=== PATIENT | female | born 1940 | race Caucasian/White ===

== ENCOUNTER 2020-03-04 17:51 | Inpatient (IN) | payer MEDICARE, BC ==
[2020-03-04] MEDS ORDERED: Ondansetron 4 MG Tab.DIS PO ONE (18:30)
[2020-03-04] MEDS ORDERED: Sodium Chloride 0.9% 10 ML Syringe FLUSH PRN (18:45)
[2020-03-04] MEDS ORDERED: Sodium Chloride 0.9% 1,000 ML IV ONE (18:47)
[2020-03-04] MEDS ORDERED: Metoclopramide 10 MG/2 ML SDV IVPUSH ONE (18:58)
--- NOTE | 2020-03-04 19:04 | EDM.PDOC ---
ED HPI GENERAL MEDICAL PROBLEM - General Chief Complaint: Gastrointestinal Problem Stated Complaint: SORE THROAT/DIZZY/DIARRHEA Time Seen by Provider: 03/04/20 18:43 Source of Information: Reports: Patient, RN Notes Reviewed History Limitations: Reports: No Limitations - History of Present Illness INITIAL COMMENTS - FREE TEXT/NARRATIVE: Patient is a 79-year-old female who presents to the ED for the evaluation of a couple different complaints. She states that she developed a sore throat last night at around 11 PM, and this is just worsened all day. She states that she is felt dizzy, had 4 episodes of diarrhea, had a headache with associated nausea. Patient does have a little bit of emesis in the bag upon triage. Patient states that she is really not been eating or drinking anything all day, as her throat pain is been quite severe. Patient states that she does not have a fever at home, we got a temperature 98.4 F, but she does feel warmer than this. She does states she has had the chills, she denies any body aches, she states that she has not been around anyone that sick, they have been real careful about trying to stay home and limit exposure to anyone. She did take a dose of Tylenol, this seemed to help a little bit. She states that her episodes of diarrhea were very watery, she denies any abdominal pain, dysuria, frequency or urgency. She states she did take 1 spoonful of Pepto for the diarrhea but this did not help much. She does have a intermittent wet cough at time of exam as well. Patient's primary care provider is Agueda Mccray, she is on losartan, fenofibrate, and metformin. Throat Pain Score (Numeric/FACES): 7 - Related Data Allergies Allergy/AdvReac Type Severity Reaction Status Date / Time azithromycin Allergy Severe Cannot Verified 03/04/20 18:18 Remember propoxyphene AdvReac Severe Nausea and Verified 03/04/20 18:18 Vomiting biaxin Allergy Severe Rash Uncoded 03/04/20 18:18 hydrocodone Allergy Severe Cannot Uncoded 03/04/20 18:18 Remember meclizine AdvReac Severe Dizziness Uncoded 03/04/20 18:18 trimethoprim AdvReac Severe Stomach Uncoded 03/04/20 18:18 Upset Home Meds: Home Meds Ascorbic Acid [Vitamin C] 1 tab PO DAILY 10/19/14 [History] Aspirin/Acetaminophen/Caffeine [Migraine Formula Caplet] 2 tab PO BID 10/19/14 [History] Calcium Carbonate/Vitamin D3 [Calcium 500-Vit D3 125 Caplet] 3 tab PO DAILY 10/19/14 [History] Cholecalciferol (Vitamin D3) [Vitamin D3] 1 tab PO DAILY 10/19/14 [History] Fermig 60 mg PO ASDIRECTED 10/19/14 [History] L Acidophil/B Lactis/B Longum [Florajen3] 1 tab PO DAILY 10/19/14 [History] Losartan/Hydrochlorothiazide [Losartan-HCTZ 100-25 MG] 1 tab PO DAILY 10/19/14 [History] [place] 3/DHA/Epa/Vitamin D3 [[place]-3 + Vitamin D3 Softgel] 1 tab PO DAILY 10/19/14 [History] Simvastatin [Zocor] 1 tab PO BEDTIME 10/19/14 [History] Ubidecarenone [Co Q-10] 1 tab PO DAILY 10/19/14 [History] metFORMIN HCl [Metformin HCl] 500 mg PO DAILY 10/19/14 [History] Ciprofloxacin HCl [Cipro] 500 mg PO BID #14 tablet 10/22/14 [Rx] metroNIDAZOLE [Flagyl] 500 mg PO Q8H #21 tab 10/22/14 [Rx] Past Medical History HEENT History: Reports: Impaired Vision Cardiovascular History: Reports: High Cholesterol, Hypertension 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 Denies: Fever HEENT: Reports: Throat Pain. Denies: Throat Swelling Respiratory: Reports: Cough. Denies: Shortness of Breath Cardiovascular: Denies: Chest Pain GI/Abdominal: Reports: Diarrhea (x 4 watery episodes today), Nausea, Vomiting. Denies: Abdominal Pain, Distension : Denies: Dysuria, Frequency, Urgency Neurological: Reports: Dizziness (characterizes a world spinning dizziness) ED EXAM, GI/ABD - Physical Exam Exam: See Below Exam Limited By: No Limitations General Appearance: Alert, WD/WN, No Apparent Distress Eyes: Bilateral: Normal Appearance Throat/Mouth: Normal Inspection, Normal Lips, Normal Teeth, Normal Gums, Normal Oropharynx, Normal Voice, No Airway Compromise Head: Atraumatic, Normocephalic Neck: Normal Inspection Respiratory/Chest: No Respiratory Distress, Lungs Clear, Normal Breath Sounds, No Accessory Muscle Use, Chest Non-Tender, Other (pt did have a harsh sounding cough when I was examining her) Cardiovascular: Normal Peripheral Pulses, Regular Rate, Rhythm, No Murmur GI/Abdominal Exam: Normal Bowel Sounds, Soft, Non-Tender, No Distention, No Mass Extremities: Normal Inspection, Normal Capillary Refill Neurological: Alert, Oriented, Normal Cognition, No Motor/Sensory Deficits Psychiatric: Normal Affect, Normal Mood Skin Exam: Warm (pt feels warm to the touch), Intact, Normal Color, No Rash, Diaphoretic EKG INTERPRETATION EKG Date: 03/04/20 Time: 19:26 Rhythm: NSR Rate (Beats/Min): 75 [place]: Normal P-Wave: Present QRS: Normal ST-T: Normal QT: Normal Comparison: NA - No Prior EKG EKG Interpretation Comments: No obvious ischemia or acute ST changes noted, reviewed by myself and Dr. Varela. Course - Vital Signs Last Recorded V/S: Last Vital Signs Temp 98.4 F 03/04/20 18:18 Pulse 87 03/04/20 18:18 Resp 18 03/04/20 18:18 BP 168/90 H 03/04/20 18:18 Pulse Ox 97 03/04/20 18:18 - Orders/Labs/Meds Orders: Active Orders 24 hr Category Date Time Status Admission Status [Patient Status] [ADT] Routine ADT 03/04/20 21:00 Ordered EKG Documentation Completion [RC] STAT Care 03/04/20 19:03 Ordered Peripheral IV Care [RC] . DIRECTED Care 03/04/20 18:45 Ordered Chest 1V Frontal [CR] Stat Exams 03/04/20 18:58 Ordered CULTURE STREP A CONFIRMATION [RM] Stat Lab 03/04/20 18:34 Results OSMOLALITY,URINE [URCHEM] Stat Lab 03/04/20 19:30 Received SODIUM,URINE RANDOM [URCHEM] Stat Lab 03/04/20 20:58 Ordered STREP SCRN A RAPID W CULT CONF [RM] Stat Lab 03/04/20 18:34 Ordered Sodium Chloride 0.9% [Normal Saline] 1,000 ml Med 03/04/20 21:00 Active IV ASDIRECTED Sodium Chloride 0.9% [Saline Flush] Med 03/04/20 18:45 Ordered 10 ml FLUSH ASDIRECTED PRN Peripheral IV Insertion Adult [OM.PC] Routine Oth 03/04/20 18:45 Ordered Medication Orders Sodium Chloride (Normal Saline) 1,000 mls @ 125 mls/hr IV ASDIRECTED SHAUNA Sodium Chloride (Saline Flush) 10 ml FLUSH ASDIRECTED PRN PRN Reason: Keep Vein Open Last Admin: 03/04/20 19:13 Dose: 10 ml Documented by: ELI Labs: Laboratory Tests 03/04/20 03/04/20 03/04/20 Range/Units 18:30 18:30 18:30 WBC 13.69 H (3.98-10.04) K/mm3 RBC 4.24 (3.98-5.22) M/mm3 Hgb 12.3 (11.2-15.7) gm/dl Hct 36.2 (34.1-44.9) % MCV 85.4 D (79.4-94.8) fl MCH 29.0 (25.6-32.2) pg MCHC 34.0 (32.2-35.5) g/dl RDW Std Deviation 37.9 (36.4-46.3) fL Plt Count 394 H D (182-369) K/mm3 MPV 9.5 (9.4-12.3) fl Neut % (Auto) 73.1 H (34.0-71.1) % Lymph % (Auto) 18.8 L (19.3-51.7) % Stone % (Auto) 6.9 (4.7-12.5) % Eos % (Auto) 0.4 L (0.7-5.8) Baso % (Auto) 0.1 (0.1-1.2) % Neut # (Auto) 10.02 H (1.56-6.13) K/mm3 Lymph # (Auto) 2.57 (1.18-3.74) K/mm3 Stone # (Auto) 0.94 H (0.24-0.36) K/mm3 Eos # (Auto) 0.05 (0.04-0.36) K/mm3 Baso # (Auto) 0.01 (0.01-0.08) K/mm3 Manual Slide Review Normal smear PT (9.7-12.0) SECONDS INR APTT (22-31) SECONDS D-Dimer, Quantitative (0.19-0.50) mg/L Sodium 116 L* D (136-145) mEq/L Potassium 4.0 (3.5-5.1) mEq/L Chloride 81 L D (98-107) mEq/L Carbon Dioxide 24 (21-32) mEq/L Anion Gap 15.0 (5-15) BUN 25 H (7-18) mg/dL Creatinine 1.1 H (0.55-1.02) mg/dL Est Cr Clr Drug Dosing 38.82 mL/min Estimated GFR (MDRD) 48 (>60) mL/min BUN/Creatinine Ratio 22.7 H (14-18) Glucose 178 H (83-115) mg/dL Serum Osmolality (280-300) mosm/kg Calcium 8.9 (8.5-10.1) mg/dL Ferritin 189 (8-252) ng/ml Total Bilirubin 0.3 (0.2-1.0) mg/dL AST 21 (15-37) U/L ALT 27 (14-59) U/L Alkaline Phosphatase 47 (46-116) U/L Lactate Dehydrogenase 226 (81-234) U/L Troponin I (0.00-0.056) ng/mL NT-Pro-B Natriuret Pep (0-450) pg/mL Total Protein 7.4 (6.4-8.2) g/dl Albumin 3.9 (3.4-5.0) g/dl Globulin 3.5 gm/dL Albumin/Globulin Ratio 1.1 (1-2) Urine Color (Yellow) Urine Appearance (Clear) Urine pH (5.0-8.0) Ur Specific [place] (1.005-1.030) Urine Protein (Negative) Urine Glucose (UA) (Negative) Urine Ketones (Negative) Urine Occult Blood (Negative) Urine Nitrite (Negative) Urine Bilirubin (Negative) Urine Urobilinogen (0.2-1.0) Ur Leukocyte Esterase (Negative) Urine RBC (0-5) /hpf Urine WBC (0-5) /hpf Ur Squamous Epith Cells (0-5) /hpf Urine Bacteria (FEW) /hpf Urine Mucus (FEW) /hpf SARS Virus RNA (PCR) (NEGATIVE) 03/04/20 03/04/20 03/04/20 Range/Units 18:30 18:30 18:30 WBC (3.98-10.04) K/mm3 RBC (3.98-5.22) M/mm3 Hgb (11.2-15.7) gm/dl Hct (34.1-44.9) % MCV (79.4-94.8) fl MCH (25.6-32.2) pg MCHC (32.2-35.5) g/dl RDW Std Deviation (36.4-46.3) fL Plt Count (182-369) K/mm3 MPV (9.4-12.3) fl Neut % (Auto) (34.0-71.1) % Lymph % (Auto) (19.3-51.7) % Stone % (Auto) (4.7-12.5) % Eos % (Auto) (0.7-5.8) Baso % (Auto) (0.1-1.2) % Neut # (Auto) (1.56-6.13) K/mm3 Lymph # (Auto) (1.18-3.74) K/mm3 Stone # (Auto) (0.24-0.36) K/mm3 Eos # (Auto) (0.04-0.36) K/mm3 Baso # (Auto) (0.01-0.08) K/mm3 Manual Slide Review PT 11.3 (9.7-12.0) SECONDS INR 1.06 APTT 26 (22-31) SECONDS D-Dimer, Quantitative 0.34 (0.19-0.50) mg/L Sodium (136-145) mEq/L Potassium (3.5-5.1) mEq/L Chloride (98-107) mEq/L Carbon Dioxide (21-32) mEq/L Anion Gap (5-15) BUN (7-18) mg/dL Creatinine (0.55-1.02) mg/dL Est Cr Clr Drug Dosing mL/min Estimated GFR (MDRD) (>60) mL/min BUN/Creatinine Ratio (14-18) Glucose (83-115) mg/dL Serum Osmolality 261 L (280-300) mosm/kg Calcium (8.5-10.1) mg/dL Ferritin (8-252) ng/ml Total Bilirubin (0.2-1.0) mg/dL AST (15-37) U/L ALT (14-59) U/L Alkaline Phosphatase (46-116) U/L Lactate Dehydrogenase (81-234) U/L Troponin I < 0.017 (0.00-0.056) ng/mL NT-Pro-B Natriuret Pep (0-450) pg/mL Total Protein (6.4-8.2) g/dl Albumin (3.4-5.0) g/dl Globulin gm/dL Albumin/Globulin Ratio (1-2) Urine Color (Yellow) Urine Appearance (Clear) Urine pH (5.0-8.0) Ur Specific [place] (1.005-1.030) Urine Protein (Negative) Urine Glucose (UA) (Negative) Urine Ketones (Negative) Urine Occult Blood (Negative) Urine Nitrite (Negative) Urine Bilirubin (Negative) Urine Urobilinogen (0.2-1.0) Ur Leukocyte Esterase (Negative) Urine RBC (0-5) /hpf Urine WBC (0-5) /hpf Ur Squamous Epith Cells (0-5) /hpf Urine Bacteria (FEW) /hpf Urine Mucus (FEW) /hpf SARS Virus RNA (PCR) (NEGATIVE) 03/04/20 03/04/20 03/04/20 Range/Units 18:30 19:17 19:30 WBC (3.98-10.04) K/mm3 RBC (3.98-5.22) M/mm3 Hgb (11.2-15.7) gm/dl Hct (34.1-44.9) % MCV (79.4-94.8) fl MCH (25.6-32.2) pg MCHC (32.2-35.5) g/dl RDW Std Deviation (36.4-46.3) fL Plt Count (182-369) K/mm3 MPV (9.4-12.3) fl Neut % (Auto) (34.0-71.1) % Lymph % (Auto) (19.3-51.7) % Stone % (Auto) (4.7-12.5) % Eos % (Auto) (0.7-5.8) Baso % (Auto) (0.1-1.2) % Neut # (Auto) (1.56-6.13) K/mm3 Lymph # (Auto) (1.18-3.74) K/mm3 [place] # (Auto) (0.24-0.36) K/mm3 Eos # (Auto) (0.04-0.36) K/mm3 Baso # (Auto) (0.01-0.08) K/mm3 Manual Slide Review PT (9.7-12.0) SECONDS INR APTT (22-31) SECONDS D-Dimer, Quantitative (0.19-0.50) mg/L Sodium (136-145) mEq/L Potassium (3.5-5.1) mEq/L Chloride (98-107) mEq/L Carbon Dioxide (21-32) mEq/L Anion Gap (5-15) BUN (7-18) mg/dL Creatinine (0.55-1.02) mg/dL Est Cr Clr Drug Dosing mL/min Estimated GFR (MDRD) (>60) mL/min BUN/Creatinine Ratio (14-18) Glucose (83-115) mg/dL Serum Osmolality (280-300) mosm/kg Calcium (8.5-10.1) mg/dL Ferritin (8-252) ng/ml Total Bilirubin (0.2-1.0) mg/dL AST (15-37) U/L ALT (14-59) U/L Alkaline Phosphatase (46-116) U/L Lactate Dehydrogenase (81-234) U/L Troponin I (0.00-0.056) ng/mL NT-Pro-B Natriuret Pep 403 (0-450) pg/mL Total Protein (6.4-8.2) g/dl Albumin (3.4-5.0) g/dl Globulin gm/dL Albumin/Globulin Ratio (1-2) Urine Color Yellow (Yellow) Urine Appearance Clear (Clear) Urine pH 7.0 (5.0-8.0) Ur Specific [place] 1.025 (1.005-1.030) Urine Protein Negative (Negative) Urine Glucose (UA) Trace H (Negative) Urine Ketones Negative (Negative) Urine Occult Blood Negative (Negative) Urine Nitrite Negative (Negative) Urine Bilirubin Negative (Negative) Urine Urobilinogen 0.2 (0.2-1.0) Ur Leukocyte Esterase Negative (Negative) Urine RBC 0-5 (0-5) /hpf Urine WBC 0-5 (0-5) /hpf Ur Squamous Epith Cells 0-5 (0-5) /hpf Urine Bacteria Few (FEW) /hpf Urine Mucus Few (FEW) /hpf SARS Virus RNA (PCR) Negative (NEGATIVE) Meds: Medications Generic Name Dose Route Start Last Admin Trade Name Freq PRN Reason Stop Dose Admin Sodium Chloride 1,000 mls @ 125 mls/hr 03/04/20 21:00 Normal Saline IV ASDIRECTED SHAUNA Sodium Chloride 10 ml 03/04/20 18:45 03/04/20 19:13 Saline Flush FLUSH 10 ml ASDIRECTED PRN Administration Keep Vein Open Discontinued Medications Generic Name Dose Route Start Last Admin Trade Name Freq PRN Reason Stop Dose Admin Sodium Chloride 1,000 mls @ 999 mls/hr 03/04/20 18:47 03/04/20 19:13 Normal Saline IV 03/04/20 19:47 999 mls/hr ONETIME ONE Administration Metoclopramide HCl 10 mg 03/04/20 18:58 03/04/20 19:13 Reglan IVPUSH 03/04/20 18:59 10 mg ONETIME ONE Administration Ondansetron HCl 4 mg 03/04/20 18:30 03/04/20 18:34 Zofran Odt PO 03/04/20 18:31 4 mg ONETIME ONE Administration - Re-Assessments/Exams Free Text/Narrative Re-Assessment/Exam: 03/04/20 19:06 Patient presents to the ED for her sore throat, diarrhea, and dizziness. Patient's symptomology is quite vague, laboratory evaluation will be carried out, along with chest x-ray, EKG, and a 1 hour coronavirus test to determine whe ther or not she has COVID-19 at the time of exam. I did make nursing aware, and they stated they were going to put her in isolation precautions at this time. 03/04/20 19:48 Patient sodium is low at 116. This will put her in for hospital admission. She is getting 1 L of normal saline at this time. No other abnormalities on labs have been appreciated otherwise. EKG is sinus rhythm at 75 bpm, no obvious ischemic change appreciated by myself or Dr. Varela. After the serum sodium did come back, I have ordered other labs for further evaluation. 03/04/20 21:07 Patient's laboratory evaluation has come back other than the serum sodium being low at 116, there are no other metabolic abnormalities appreciated. COVID test is negative. I did call Dr. Parker for hospitalization and he does agree for admission at this time. Departure - Departure Time of Disposition: 21:08 Disposition: Admitted As Inpatient 66 Condition: Good Clinical Impression: Hyponatremia - Discharge Information Referrals: Agueda Mccray MD [Primary Care Provider] - Forms: ED Department Discharge Sepsis Event Note (ED) - Evaluation Sepsis Screening Result: No Definite Risk - Focused Exam Vital Signs: Vital Signs Temp Pulse Resp BP Pulse Ox 03/04/20 18:18 98.4 F 87 18 168/90 H 97 - My Orders Last 24 Hours: My Active Orders 03/04/20 18:34 CULTURE STREP A CONFIRMATION [RM] Stat STREP SCRN A RAPID W CULT CONF [RM] Stat 03/04/20 18:45 Peripheral IV Care [RC] . DIRECTED Sodium Chloride 0.9% [Saline Flush] 10 ml FLUSH ASDIRECTED PRN Peripheral IV Insertion Adult [OM.PC] Routine 03/04/20 18:58 Chest 1V Frontal [CR] Stat 03/04/20 19:03 EKG Documentation Completion [RC] STAT 03/04/20 19:30 OSMOLALITY,URINE [URCHEM] Stat 03/04/20 20:58 SODIUM,URINE RANDOM [URCHEM] Stat 03/04/20 21:00 Admission Status [Patient Status] [ADT] Routine Sodium Chloride 0.9% [Normal Saline] 1,000 ml IV ASDIRECTED - Assessment/Plan Last 24 Hours: My Active Orders 03/04/20 18:34 CULTURE STREP A CONFIRMATION [RM] Stat STREP SCRN A RAPID W CULT CONF [RM] Stat 03/04/20 18:45 Peripheral IV Care [RC] . DIRECTED Sodium Chloride 0.9% [Saline Flush] 10 ml FLUSH ASDIRECTED PRN Peripheral IV Insertion Adult [OM.PC] Routine 03/04/20 18:58 Chest 1V Frontal [CR] Stat 03/04/20 19:03 EKG Documentation Completion [RC] STAT 03/04/20 19:30 OSMOLALITY,URINE [URCHEM] Stat 03/04/20 20:58 SODIUM,URINE RANDOM [URCHEM] Stat 03/04/20 21:00 Admission Status [Patient Status] [ADT] Routine Sodium Chloride 0.9% [Normal Saline] 1,000 ml IV ASDIRECTED
[2020-03-04] MEDS ORDERED: Sodium Chloride 0.9% 1,000 ML IV SCH (21:00)
[2020-03-04] MEDS ORDERED: Acetaminophen 325 MG Tab PO PRN (22:51)
[2020-03-04] MEDS ORDERED: Melatonin 3 MG Tab PO PRN (22:57)
[2020-03-04] MEDS ORDERED: Potassium Chloride 20 MEQ Tab.ER PO ONE (23:51)
[2020-03-04] MEDS ORDERED: Magnesium Sulfate/Water 4 GM in Premix Bag 1 BAG IV ONE (23:51)
[2020-03-05] MEDS: Ondansetron 4 MG/2 ML SDV IV PRN ×2 (02:07→07:12)
[2020-03-05] MEDS ORDERED: Sodium Chloride 3% 500 ML IV SCH ×2 (07:45→19:00)
[2020-03-05] MEDS ORDERED: Promethazine 12.5 MG in Sodium Chloride 0.9% 50 ML IV PRN (08:12)
--- NOTE | 2020-03-05 08:22 | PCM.HP.2 ---
H&P History of Present Illness - General Date of Service: 03/05/20 Admit Problem/Dx: Admission Diagnosis/Problem Admission Diagnosis/Problem Symptomatic Hyponatremia - History of Present Illness Initial Comments - Free Text/Narative: The patient is a 79 yo female, PCP Agueda Mccray, with a past medical history of hypertension, hyperlipidemia, diabetes mellitus type II , and migraines. The patient presented to the emergency room yesterday evening after experiencing diarrhea, burning throat pain, and dizziness. The patient's throat pain is deep and she feels like it goes down into her stomach. She has not eaten anything since the day before yesterday because pain increases with swallowing food. The patient has also had a lot of nausea but has not vomited until this morning. She has also had diarrhea about 4x yesterday. She denies blood in stool or in vomit. She has been dizzy, the room spinning, and has had shaking, chills. No blurred vision. She denies fever. She denies any recent changes in medication. In the ED, vital signs w/ temp 98.4, pulse 87, RR 18, BP 168/90, pulse ox 97% on RA. The patient was found with WBC 13.69, H/H normal, sodium 116. Strep test negative. UA negative for infection. She was given 1L NS bolus, started on NS @125 ml/hr, given reglan 10mg IV x1 and zofran 4mg oral x1. EKG was NSR without ST elevation or depression. COVID 19 test negative. EKG without acute cardiopu lmonary disease. Throat Pain Score (Numeric/FACES): 5 Headache Pain Score (Numeric/FACES): 6 - Related Data Allergies/Adverse Reactions: Allergies Allergy/AdvReac Type Severity Reaction Status Date / Time azithromycin Allergy Severe Cannot Verified 03/04/20 22:25 Remember propoxyphene AdvReac Severe Nausea and Verified 03/04/20 22:25 Vomiting biaxin Allergy Severe Rash Uncoded 03/04/20 18:18 hydrocodone Allergy Severe Cannot Uncoded 03/04/20 18:18 Remember meclizine AdvReac Severe Dizziness Uncoded 03/04/20 18:18 trimethoprim AdvReac Severe Stomach Uncoded 03/04/20 18:18 Upset Home Medications: Home Meds Calcium Carbonate [Calcium] 1,000 mg PO BEDTIME 03/04/20 [History] Cholecalciferol (Vitamin D3) [Vitamin D3] 1,000 unit PO DAILY 03/04/20 [History] Fenofibrate Nanocrystallized [Fenofibrate] 145 mg PO DAILY 03/04/20 [History] Hydrochlorothiazide/Losartan [Hyzaar 50-12.5 MG] 1 tab PO DAILY 03/04/20 [History] SUMAtriptan succinate [Imitrex] 50 mg PO ASDIRECTED PRN 03/04/20 [History] Stem Cell Maxum 1 tab PO DAILY 03/04/20 [History] metroNIDAZOLE [Flagyl] 500 mg PO BID 03/04/20 [History] Past Medical History HEENT History: Reports: Impaired Vision Other HEENT History: wear glasses Cardiovascular History: Reports: High Cholesterol, Hypertension [employer] History: Reports: Endocrine/Metabolic History: Reports: Diabetes, Type II Other Endocrine/Metabolic History: checks blood sugars once a day - Infectious Disease History Other Infectious Disease History: unknown - Past Surgical History GI Surgical History: Reports: Colonoscopy, EGD Female Surgical History: Reports: Hysterectomy Social & Family History - Family History Family Medical History: Noncontributory - Tobacco Use Smoking Status *Q: Never Smoker - Caffeine Use Caffeine Use: Reports: Coffee, Tea - Recreational Drug Use Recreational Drug Use: No H&P Review of Systems - Review of Systems: Review Of Systems: See Below General: Reports: Chills, Weakness, Decreased Appetite HEENT: Reports: Headaches, Sore Throat Pulmonary: Reports: No Symptoms Cardiovascular: Reports: No Symptoms Gastrointestinal: Reports: Diarrhea, Decreased Appetite, Nausea, Vomiting. Denies: Abdominal Pain Genitourinary: Reports: No Symptoms Neurological: Reports: Dizziness, Headache, Tremors. Denies: Confusion Exam - Exam Exam: See Below - Vital Signs Vital Signs: Last Vital Signs Temp 97.9 F 03/05/20 07:34 Pulse 73 03/05/20 07:34 Resp 20 03/05/20 07:34 BP 134/73 03/05/20 07:34 Pulse Ox 96 03/05/20 07:34 Weight: 164 lb 1.6 oz - Exam General: Alert, Oriented, Moderate Distress (with shaking hands and nausea.) HEENT: EOMI, Pupils Equal, Other (dry oral mucuosa, without erythema or swelling. No exudates present and no swelling of tonsil. ) Neck: Supple Lungs: Clear to Auscultation Cardiovascular: Regular Rate, Regular Rhythm, Normal S1, Normal S2 GI/Abdominal Exam: Normal Bowel Sounds, Soft, Other (slight tenderness with deep palation in epigastric region. Non tender to deep palpation in RUQ, RLQ, LUQ or LLQ) Extremities: Normal Inspection, Non-Tender, Normal Capillary Refill, Pedal Edema (1+), Other (hands are with fine tremors). No: [place]'s Sign Peripheral Pulses: 2+: Posterior Tibial (L), Posterior Tibial (R) Skin: Warm, Dry, Intact Neurological: Normal Speech, Normal Tone, Other (PERRL, EOMs intact, no facial droop). No: Focal Deficit Neuro Extensive - Mental Status: Alert, Oriented x3, Normal Mood/Affect, Normal Cognition, Memory Intact Psychiatric: Alert, Normal Affect, Normal Mood - Patient Data Lab Results Last 24 hrs: Laboratory Results - last 24 hr 03/04/20 03/04/20 03/04/20 Range/Units 18:30 18:30 18:30 WBC 13.69 H (3.98-10.04) K/mm3 RBC 4.24 (3.98-5.22) M/mm3 Hgb 12.3 (11.2-15.7) gm/dl Hct 36.2 (34.1-44.9) % MCV 85.4 D (79.4-94.8) fl MCH 29.0 (25.6-32.2) pg MCHC 34.0 (32.2-35.5) g/dl RDW Std Deviation 37.9 (36.4-46.3) fL Plt Count 394 H D (182-369) K/mm3 MPV 9.5 (9.4-12.3) fl Neut % (Auto) 73.1 H (34.0-71.1) % Lymph % (Auto) 18.8 L (19.3-51.7) % [place] % (Auto) 6.9 (4.7-12.5) % Eos % (Auto) 0.4 L (0.7-5.8) Baso % (Auto) 0.1 (0.1-1.2) % Neut # (Auto) 10.02 H (1.56-6.13) K/mm3 Lymph # (Auto) 2.57 (1.18-3.74) K/mm3 [place] # (Auto) 0.94 H (0.24-0.36) K/mm3 Eos # (Auto) 0.05 (0.04-0.36) K/mm3 Baso # (Auto) 0.01 (0.01-0.08) K/mm3 Manual Slide Review Normal smear PT (9.7-12.0) SECONDS INR APTT (22-31) SECONDS D-Dimer, Quantitative (0.19-0.50) mg/L Sodium 116 L* D (136-145) mEq/L Potassium 4.0 (3.5-5.1) mEq/L Chloride 81 L D (98-107) mEq/L Carbon Dioxide 24 (21-32) mEq/L Anion Gap 15.0 (5-15) BUN 25 H (7-18) mg/dL Creatinine 1.1 H (0.55-1.02) mg/dL Est Cr Clr Drug Dosing 38.82 mL/min Estimated GFR (MDRD) 48 (>60) mL/min BUN/Creatinine Ratio 22.7 H (14-18) Glucose 178 H (83-115) mg/dL POC Glucose (83-110) mg/dL Serum Osmolality (280-300) mosm/kg Calcium 8.9 (8.5-10.1) mg/dL Magnesium (1.8-2.4) mg/dl Ferritin 189 (8-252) ng/ml Total Bilirubin 0.3 (0.2-1.0) mg/dL AST 21 (15-37) U/L ALT 27 (14-59) U/L Alkaline Phosphatase 47 (46-116) U/L Lactate Dehydrogenase 226 (81-234) U/L Troponin I (0.00-0.056) ng/mL NT-Pro-B Natriuret Pep (0-450) pg/mL Total Protein 7.4 (6.4-8.2) g/dl Albumin 3.9 (3.4-5.0) g/dl Globulin 3.5 gm/dL Albumin/Globulin Ratio 1.1 (1-2) Urine Color (Yellow) Urine Appearance (Clear) Urine pH (5.0-8.0) Ur Specific [place] (1.005-1.030) Urine Protein (Negative) Urine Glucose (UA) (Negative) Urine Ketones (Negative) Urine Occult Blood (Negative) Urine Nitrite (Negative) Urine Bilirubin (Negative) Urine Urobilinogen (0.2-1.0) Ur Leukocyte Esterase (Negative) Urine RBC (0-5) /hpf Urine WBC (0-5) /hpf Ur Squamous Epith Cells (0-5) /hpf Urine Bacteria (FEW) /hpf Urine Mucus (FEW) /hpf Urine Osmolality (400-1100) mosm/kg Ur Random Sodium (40-220) mEq/L SARS Virus RNA (PCR) (NEGATIVE) 03/04/20 03/04/20 03/04/20 Range/Units 18:30 18:30 18:30 WBC (3.98-10.04) K/mm3 RBC (3.98-5.22) M/mm3 Hgb (11.2-15.7) gm/dl Hct (34.1-44.9) % MCV (79.4-94.8) fl MCH (25.6-32.2) pg MCHC (32.2-35.5) g/dl RDW Std Deviation (36.4-46.3) fL Plt Count (182-369) K/mm3 MPV (9.4-12.3) fl Neut % (Auto) (34.0-71.1) % Lymph % (Auto) (19.3-51.7) % [place] % (Auto) (4.7-12.5) % Eos % (Auto) (0.7-5.8) Baso % (Auto) (0.1-1.2) % Neut # (Auto) (1.56-6.13) K/mm3 Lymph # (Auto) (1.18-3.74) K/mm3 [place] # (Auto) (0.24-0.36) K/mm3 Eos # (Auto) (0.04-0.36) K/mm3 Baso # (Auto) (0.01-0.08) K/mm3 Manual Slide Review PT 11.3 (9.7-12.0) SECONDS INR 1.06 APTT 26 (22-31) SECONDS D-Dimer, Quantitative 0.34 (0.19-0.50) mg/L Sodium (136-145) mEq/L Potassium (3.5-5.1) mEq/L Chloride (98-107) mEq/L Carbon Dioxide (21-32) mEq/L Anion Gap (5-15) BUN (7-18) mg/dL Creatinine (0.55-1.02) mg/dL Est Cr Clr Drug Dosing mL/min Estimated GFR (MDRD) (>60) mL/min BUN/Creatinine Ratio (14-18) Glucose (83-115) mg/dL POC Glucose (83-110) mg/dL Serum Osmolality 261 L (280-300) mosm/kg Calcium (8.5-10.1) mg/dL Magnesium (1.8-2.4) mg/dl Ferritin (8-252) ng/ml Total Bilirubin (0.2-1.0) mg/dL AST (15-37) U/L ALT (14-59) U/L Alkaline Phosphatase (46-116) U/L Lactate Dehydrogenase (81-234) U/L Troponin I < 0.017 (0.00-0.056) ng/mL NT-Pro-B Natriuret Pep (0-450) pg/mL Total Protein (6.4-8.2) g/dl Albumin (3.4-5.0) g/dl Globulin gm/dL Albumin/Globulin Ratio (1-2) Urine Color (Yellow) Urine Appearance (Clear) Urine pH (5.0-8.0) Ur Specific [place] (1.005-1.030) Urine Protein (Negative) Urine Glucose (UA) (Negative) Urine Ketones (Negative) Urine Occult Blood (Negative) Urine Nitrite (Negative) Urine Bilirubin (Negative) Urine Urobilinogen (0.2-1.0) Ur Leukocyte Esterase (Negative) Urine RBC (0-5) /hpf Urine WBC (0-5) /hpf Ur Squamous Epith Cells (0-5) /hpf Urine Bacteria (FEW) /hpf Urine Mucus (FEW) /hpf Urine Osmolality (400-1100) mosm/kg Ur Random Sodium (40-220) mEq/L SARS Virus RNA (PCR) (NEGATIVE) 03/04/20 03/04/20 03/04/20 Range/Units 18:30 19:17 19:30 WBC (3.98-10.04) K/mm3 RBC (3.98-5.22) M/mm3 Hgb (11.2-15.7) gm/dl Hct (34.1-44.9) % MCV (79.4-94.8) fl MCH (25.6-32.2) pg MCHC (32.2-35.5) g/dl RDW Std Deviation (36.4-46.3) fL Plt Count (182-369) K/mm3 MPV (9.4-12.3) fl Neut % (Auto) (34.0-71.1) % Lymph % (Auto) (19.3-51.7) % [place] % (Auto) (4.7-12.5) % Eos % (Auto) (0.7-5.8) Baso % (Auto) (0.1-1.2) % Neut # (Auto) (1.56-6.13) K/mm3 Lymph # (Auto) (1.18-3.74) K/mm3 [place] # (Auto) (0.24-0.36) K/mm3 Eos # (Auto) (0.04-0.36) K/mm3 Baso # (Auto) (0.01-0.08) K/mm3 Manual Slide Review PT (9.7-12.0) SECONDS INR APTT (22-31) SECONDS D-Dimer, Quantitative (0.19-0.50) mg/L Sodium (136-145) mEq/L Potassium (3.5-5.1) mEq/L Chloride (98-107) mEq/L Carbon Dioxide (21-32) mEq/L Anion Gap (5-15) BUN (7-18) mg/dL Creatinine (0.55-1.02) mg/dL Est Cr Clr Drug Dosing mL/min Estimated GFR (MDRD) (>60) mL/min BUN/Creatinine Ratio (14-18) Glucose (83-115) mg/dL POC Glucose (83-110) mg/dL Serum Osmolality (280-300) mosm/kg Calcium (8.5-10.1) mg/dL Magnesium (1.8-2.4) mg/dl Ferritin (8-252) ng/ml Total Bilirubin (0.2-1.0) mg/dL AST (15-37) U/L ALT (14-59) U/L Alkaline Phosphatase (46-116) U/L Lactate Dehydrogenase (81-234) U/L Troponin I (0.00-0.056) ng/mL NT-Pro-B Natriuret Pep 403 (0-450) pg/mL Total Protein (6.4-8.2) g/dl Albumin (3.4-5.0) g/dl Globulin gm/dL Albumin/Globulin Ratio (1-2) Urine Color Yellow (Yellow) Urine Appearance Clear (Clear) Urine pH 7.0 (5.0-8.0) Ur Specific [place] 1.025 (1.005-1.030) Urine Protein Negative (Negative) Urine Glucose (UA) Trace H (Negative) Urine Ketones Negative (Negative) Urine Occult Blood Negative (Negative) Urine Nitrite Negative (Negative) Urine Bilirubin Negative (Negative) Urine Urobilinogen 0.2 (0.2-1.0) Ur Leukocyte Esterase Negative (Negative) Urine RBC 0-5 (0-5) /hpf Urine WBC 0-5 (0-5) /hpf Ur Squamous Epith Cells 0-5 (0-5) /hpf Urine Bacteria Few (FEW) /hpf Urine Mucus Few (FEW) /hpf Urine Osmolality (400-1100) mosm/kg Ur Random Sodium (40-220) mEq/L SARS Virus RNA (PCR) Negative (NEGATIVE) 03/04/20 03/04/20 03/04/20 Range/Units 19:30 19:30 22:34 WBC (3.98-10.04) K/mm3 RBC (3.98-5.22) M/mm3 Hgb (11.2-15.7) gm/dl Hct (34.1-44.9) % MCV (79.4-94.8) fl MCH (25.6-32.2) pg MCHC (32.2-35.5) g/dl RDW Std Deviation (36.4-46.3) fL Plt Count (182-369) K/mm3 MPV (9.4-12.3) fl Neut % (Auto) (34.0-71.1) % Lymph % (Auto) (19.3-51.7) % [place] % (Auto) (4.7-12.5) % Eos % (Auto) (0.7-5.8) Baso % (Auto) (0.1-1.2) % Neut # (Auto) (1.56-6.13) K/mm3 Lymph # (Auto) (1.18-3.74) K/mm3 [place] # (Auto) (0.24-0.36) K/mm3 Eos # (Auto) (0.04-0.36) K/mm3 Baso # (Auto) (0.01-0.08) K/mm3 Manual Slide Review PT (9.7-12.0) SECONDS INR APTT (22-31) SECONDS D-Dimer, Quantitative (0.19-0.50) mg/L Sodium 117 L* (136-145) mEq/L Potassium 3.5 (3.5-5.1) mEq/L Chloride 85 L (98-107) mEq/L Carbon Dioxide 25 (21-32) mEq/L Anion Gap 10.5 (5-15) BUN 21 H (7-18) mg/dL Creatinine 1.0 (0.55-1.02) mg/dL Est Cr Clr Drug Dosing 42.70 mL/min Estimated GFR (MDRD) 53 (>60) mL/min BUN/Creatinine Ratio 21.0 H (14-18) Glucose 177 H (83-115) mg/dL POC Glucose (83-110) mg/dL Serum Osmolality (280-300) mosm/kg Calcium 8.1 L (8.5-10.1) mg/dL Magnesium 1.3 L (1.8-2.4) mg/dl Ferritin (8-252) ng/ml Total Bilirubin (0.2-1.0) mg/dL AST (15-37) U/L ALT (14-59) U/L Alkaline Phosphatase (46-116) U/L Lactate Dehydrogenase (81-234) U/L Troponin I (0.00-0.056) ng/mL NT-Pro-B Natriuret Pep (0-450) pg/mL Total Protein (6.4-8.2) g/dl Albumin (3.4-5.0) g/dl Globulin gm/dL Albumin/Globulin Ratio (1-2) Urine Color (Yellow) Urine Appearance (Clear) Urine pH (5.0-8.0) Ur Specific [place] (1.005-1.030) Urine Protein (Negative) Urine Glucose (UA) (Negative) Urine Ketones (Negative) Urine Occult Blood (Negative) Urine Nitrite (Negative) Urine Bilirubin (Negative) Urine Urobilinogen (0.2-1.0) Ur Leukocyte Esterase (Negative) Urine RBC (0-5) /hpf Urine WBC (0-5) /hpf Ur Squamous Epith Cells (0-5) /hpf Urine Bacteria (FEW) /hpf Urine Mucus (FEW) /hpf Urine Osmolality 582 (400-1100) mosm/kg Ur Random Sodium 117 (40-220) mEq/L SARS Virus RNA (PCR) (NEGATIVE) 03/05/20 03/05/20 03/05/20 Range/Units 05:20 05:20 06:49 WBC 16.60 H (3.98-10.04) K/mm3 RBC 3.90 L (3.98-5.22) M/mm3 Hgb 11.2 (11.2-15.7) gm/dl Hct 33.0 L (34.1-44.9) % MCV 84.6 (79.4-94.8) fl MCH 28.7 (25.6-32.2) pg MCHC 33.9 (32.2-35.5) g/dl RDW Std Deviation 37.3 (36.4-46.3) fL Plt Count 345 (182-369) K/mm3 MPV 9.4 (9.4-12.3) fl Neut % (Auto) 85.3 H (34.0-71.1) % Lymph % (Auto) 8.0 L (19.3-51.7) % [place] % (Auto) 6.0 (4.7-12.5) % Eos % (Auto) 0.2 L (0.7-5.8) Baso % (Auto) 0.1 (0.1-1.2) % Neut # (Auto) 14.17 H (1.56-6.13) K/mm3 Lymph # (Auto) 1.32 (1.18-3.74) K/mm3 [place] # (Auto) 1.00 H (0.24-0.36) K/mm3 Eos # (Auto) 0.03 L (0.04-0.36) K/mm3 Baso # (Auto) 0.01 (0.01-0.08) K/mm3 Manual Slide Review Abnormal smear PT (9.7-12.0) SECONDS INR APTT (22-31) SECONDS D-Dimer, Quantitative (0.19-0.50) mg/L Sodium 116 L* (136-145) mEq/L Potassium 3.4 L (3.5-5.1) mEq/L Chloride 82 L (98-107) mEq/L Carbon Dioxide 23 (21-32) mEq/L Anion Gap 14.4 (5-15) BUN 16 (7-18) mg/dL Creatinine 1.0 (0.55-1.02) mg/dL Est Cr Clr Drug Dosing 42.70 mL/min Estimated GFR (MDRD) 53 (>60) mL/min BUN/Creatinine Ratio 16.0 (14-18) Glucose 183 H (83-115) mg/dL POC Glucose 169 H (83-110) mg/dL Serum Osmolality (280-300) mosm/kg Calcium 7.3 L (8.5-10.1) mg/dL Magnesium (1.8-2.4) mg/dl Ferritin (8-252) ng/ml Total Bilirubin (0.2-1.0) mg/dL AST (15-37) U/L ALT (14-59) U/L Alkaline Phosphatase (46-116) U/L Lactate Dehydrogenase (81-234) U/L Troponin I (0.00-0.056) ng/mL NT-Pro-B Natriuret Pep (0-450) pg/mL Total Protein (6.4-8.2) g/dl Albumin (3.4-5.0) g/dl Globulin gm/dL Albumin/Globulin Ratio (1-2) Urine Color (Yellow) Urine Appearance (Clear) Urine pH (5.0-8.0) Ur Specific [place] (1.005-1.030) Urine Protein (Negative) Urine Glucose (UA) (Negative) Urine Ketones (Negative) Urine Occult Blood (Negative) Urine Nitrite (Negative) Urine Bilirubin (Negative) Urine Urobilinogen (0.2-1.0) Ur Leukocyte Esterase (Negative) Urine RBC (0-5) /hpf Urine WBC (0-5) /hpf Ur Squamous Epith Cells (0-5) /hpf Urine Bacteria (FEW) /hpf Urine Mucus (FEW) /hpf Urine Osmolality (400-1100) mosm/kg Ur Random Sodium (40-220) mEq/L SARS Virus RNA (PCR) (NEGATIVE) Result Diagrams: 03/05/20 05:20 03/05/20 10:42 Darryl Results Last 24 hrs: Microbiology 03/04/20 18:34 Group A Streptococcus Rapid Screen - Final Throat NEGATIVE STREP A SCREEN REFERENCE RANGE: NEGATIVE Sepsis Event Note - Evaluation Sepsis Screening Result: No Definite Risk - Focused Exam Vital Signs: Vital Signs Temp Pulse Resp BP Pulse Ox 03/05/20 07:34 97.9 F 73 20 134/73 96 03/05/20 04:05 97.7 F 84 20 150/73 H 96 03/05/20 00:16 97.7 F 79 16 131/68 94 L 03/04/20 21:45 98.4 F 79 16 154/93 H 97 - Problem List (1) Hyponatremia SNOMED Code(s): 60423478 ICD Code: E87.1 - HYPO-OSMOLALITY AND HYPONATREMIA Status: Acute Priority: High Current Visit: Yes (2) Vomiting and diarrhea SNOMED Code(s): 134589429 ICD Code: R11.10 - VOMITING, UNSPECIFIED; R19.7 - DIARRHEA, UNSPECIFIED Status: Acute Current Visit: Yes (3) Throat pain in adult SNOMED Code(s): 233754467 ICD Code: R07.0 - PAIN IN THROAT Status: Acute Current Visit: Yes (4) Leukocytosis SNOMED Code(s): 152169637, 957804770 ICD Code: D72.829 - ELEVATED WHITE BLOOD CELL COUNT, UNSPECIFIED Status: Acute Current Visit: No (5) Hypokalemia SNOMED Code(s): 03145295 ICD Code: E87.6 - HYPOKALEMIA Status: Acute Current Visit: Yes (6) Hypomagnesemia SNOMED Code(s): 580220238 ICD Code: E83.42 - HYPOMAGNESEMIA Status: Acute Current Visit: Yes Problem List Initiated/Reviewed/Updated: Yes Orders Last 24hrs: Active Orders 24 hr Category Date Time Status Admission Status [Patient Status] [ADT] Routine ADT 03/04/20 21:00 Active Blood Glucose Check, Bedside [RC] QIDACANDBED Care 03/04/20 22:51 Active EKG Documentation Completion [RC] STAT Care 03/04/20 19:03 Active Oxygen Therapy [RC] PRN Care 03/04/20 22:51 Active Up With Assistance [RC] QSHIFT Care 03/04/20 22:51 Active VTE/DVT Education [RC] PER UNIT ROUTINE Care 03/04/20 22:51 Active Vital Signs [RC] Q4HR Care 03/04/20 22:51 Active ADA Diabetic [[place] [employer] Diet] [DIET Diet 03/05/20 Lunch Ordered ] Chest 1V Frontal [CR] Stat Exams 03/04/20 18:58 Taken BASIC METABOLIC PANEL,BMP [CHEM] Timed Lab 03/05/20 10:00 Ordered CULTURE STREP A CONFIRMATION [] Stat Lab 03/04/20 18:34 Results STREP SCRN A RAPID W CULT CONF [] Stat Lab 03/04/20 18:34 Results Acetaminophen [Tylenol] Med 03/04/20 22:51 Active 650 mg PO Q4H PRN Enoxaparin [Lovenox] Med 03/05/20 09:00 Active 40 mg SUBCUT DAILY Famotidine [Pepcid] Med 03/05/20 09:00 Ordered 20 mg IVPUSH BID Melatonin Med 03/04/20 22:57 Active 6 mg PO BEDTIME PRN Ondansetron [Zofran] Med 03/04/20 22:51 Active 4 mg IV Q4H PRN Promethazine [Phenergan] 12.5 mg Med 03/05/20 08:12 Ordered Sodium Chloride 0.9% [Normal Saline] 50 ml IV Q6H Sodium Chloride 0.9% [Saline Flush] Med 03/04/20 18:45 Active 10 ml FLUSH ASDIRECTED PRN Sodium Chloride 3% 500 ml Med 03/05/20 07:45 Active IV ASDIRECTED Peripheral IV Insertion Adult [OM.PC] Routine Oth 03/04/20 18:45 Ordered Resuscitation Status Routine Resus Stat 03/04/20 22:51 Ordered Medication Orders Acetaminophen (Tylenol) 650 mg PO Q4H PRN PRN Reason: Pain (Mild 1-3)/fever Last Admin: 03/04/20 23:26 Dose: 650 mg Documented by: ALEN Enoxaparin Sodium (Lovenox) 40 mg SUBCUT DAILY SHAUNA Famotidine (Pepcid) 20 mg IVPUSH BID SHAUNA Sodium Chloride (Sodium Chloride 3%) 500 mls @ 30 mls/hr IV ASDIRECTED [facility] Melatonin (Melatonin) 6 mg PO BEDTIME PRN PRN Reason: Insomnia Last Admin: 03/04/20 23:25 Dose: 6 mg Documented by: ALEN Ondansetron HCl (Zofran) 4 mg IV Q4H PRN PRN Reason: Nausea/Vomiting Last Admin: 03/05/20 07:12 Dose: 4 mg Documented by: Admin: 03/05/20 02:07 Dose: 4 mg Documented by: FAUZIA Sodium Chloride (Saline Flush) 10 ml FLUSH ASDIRECTED PRN PRN Reason: Keep Vein Open Last Admin: 03/04/20 19:13 Dose: 10 ml Documented by: ELI Assessment/Plan Comment:: Symptomatic Hyponatremia. -Pt received 2L NS, sodium remains at 116. -Starting patient on hypertonic NS 3% running at 30mls/hr. -Recheck sodium level in 4 hours. -Will keep patient on continuous cardiac monitoring. Leukocytosis. WBC 16.6. -For now, we do not find source of infection. UA negative, CXR negative. Pt afebrile, abdominal pain minimal. -Most likely due to stress. -Will trend CBC, will monitor vitals. Odynophagia. -Appears to be more GERD related. -Will enforce antacid therapy and acid reflux precautions, pepcid 20mg BID. Vomiting/nausea. -probably due to hyponatremia. Will continue to monitor symptoms w/ improvement of sodium. -Zofran 4mg q4h as needed for N/V. -Phenergan 12.5mg IV as needed for continued N/V.\ Hypokalemia. Potassium is 3.3. Giving KCl 20meq IV x1. Repeated electrolyte panel this afternoon. Hypomagnesemia. -Mg is 1.3. Pt received Mag sulfate 4g IV last night. -Repeat electrolyte panel and magnesium this afternoon. GI prophylaxis. Pepcid 20mg IV BID as patient is vomiting and has GERD symptoms. DVT prophylaxis. Pt refusing lovenox. Will place SCDs and antiembolic stocking bilaterally. - Mortality Measure Prognosis:: Good
[2020-03-05] MEDS: Famotidine 20 MG/2 ML SDV IVPUSH SCH ×2 (08:39→20:18)
[2020-03-05] MEDS ORDERED: Enoxaparin 40 MG/0.4 ML Syringe SUBCUT SCH (09:00)
--- NOTE | 2020-03-05 09:18 | CR ---
Chest: Frontal view of the chest was obtained. Comparison: Prior chest x-ray of 10/19/14. Heart size is normal. Tortuous thoracic aorta is seen. Lungs show slight pleural thickening within both lung apices and mild scarring. No acute parenchymal change is seen. Bony structures are grossly intact. Impression: 1. Nothing acute is seen. Diagnostic code #2 Study was dictated in MDT
[2020-03-05] MEDS ORDERED: Magnesium Sulfate/Water 2 GM in Premix Bag 1 BAG IV SCH (11:45)
[2020-03-05] MEDS ORDERED: Potassium Phosphates 15 MMOLE in Sodium Chloride 0.9% 250 ML IV ONE (13:00)
[2020-03-05] MEDS: Potassium Chloride 10 MEQ in Premix Bag 1 BAG IV SCH ×4 (13:38→21:57)
[2020-03-05] MEDS ORDERED: Ondansetron 4 MG/2 ML SDV IVPUSH PRN (17:22)
[2020-03-05] MEDS: Acetaminophen 325 MG/10.15 ML ML PO PRN (17:44)
[2020-03-05] MEDS: Fenofibrate Nanocrystallized 145 MG Tab PO SCH (20:17)
[2020-03-05] MEDS ORDERED: Potassium Chloride 10 MEQ in Premix Bag 1 BAG IV SCH (22:00)
[2020-03-06] MEDS ORDERED: Sodium Chloride 3% 500 ML IV SCH
[2020-03-06] MEDS ORDERED: Desmopressin 4 MCG/1 ML Amp SUBCUT ONE ×3 (02:19→08:20)
[2020-03-06] MEDS ORDERED: Dextrose 5% in Water 1,000 ML IV SCH ×2 (02:45→08:30)
[2020-03-06] MEDS: Fenofibrate Nanocrystallized 145 MG Tab PO SCH ×2 (08:41→20:35)
[2020-03-06] MEDS: Famotidine 20 MG/2 ML SDV IVPUSH SCH (08:42)
[2020-03-06] MEDS ORDERED: Cosyntropin 0.25 MG Vial IV SCH (09:00)
[2020-03-06] MEDS ORDERED: Fenofibrate Nanocrystallized 145 MG Tab PO SCH (09:00)
[2020-03-06] MEDS ORDERED: Cosyntropin 0.25 MG Vial IM SCH (09:00)
[2020-03-06] MEDS ORDERED: 50% Dextrose in Water 50 ML Syringe IVPUSH PRN (10:39)
[2020-03-06] MEDS: Insulin Lispro 100 Units/ML 3 ML Vial SUBCUT SCH ×3 (11:25→21:29)
--- NOTE | 2020-03-06 15:22 | PCM.PN ---
- General Info Date of Service: 03/06/20 Subjective Update: The patient was seen by me at bedside, case discussed with Dr. Parker. The patient today is no longer with vomiting or nausea. She no longer has shaking this morning. She has been able to tolerate diet and was actually hungry. She is able to ambulate on own without assistance. She denies changes in vision, chest pain, shortness of breath. Vital signs are stable. Overnight, patient's sodium increased to 127 from 118. Pt given desmopressin 1mcg and sodium rechecked in the AM as sodium was increasing too quickly. Changed NS 3% today D5 w/ water. 5AM labs revealed sodium at 131. Sodium was rechecked again at 2pm and is at 123. Patient remains without N/V, now without shaking or dizziness. - Review of Systems Systems Review Comment:: HEENT: Reports:Sore Throat, no longer with headache Pulmonary: Reports: No Symptoms Cardiovascular: Reports: No Symptoms Gastrointestinal: Reports: no more Diarrhea, no more nausea or vomiting Genitourinary: Reports: No Symptoms Neurological: Reports: No longer with tremors, dizziness, or headaches - Patient Data Vitals - Most Recent: Last Vital Signs Temp 97.5 F 03/06/20 11:37 Pulse 68 03/06/20 11:37 Resp 20 03/06/20 11:37 BP 127/79 03/06/20 11:37 Pulse Ox 97 03/06/20 11:37 Weight - Most Recent: 160 lb 11.2 oz I&O - Last 24 Hours: Intake & Output 03/06/20 03/06/20 03/06/20 06:59 14:59 22:59 Intake Total 1220 Output Total 2900 Balance -1680 Lab Results Last 24 Hours: Laboratory Results - last 24 hr 03/05/20 03/05/20 03/06/20 Range/Units 18:22 23:54 00:59 WBC (3.98-10.04) K/mm3 RBC (3.98-5.22) M/mm3 Hgb (11.2-15.7) gm/dl Hct (34.1-44.9) % MCV (79.4-94.8) fl MCH (25.6-32.2) pg MCHC (32.2-35.5) g/dl RDW Std Deviation (36.4-46.3) fL Plt Count (182-369) K/mm3 MPV (9.4-12.3) fl Neut % (Auto) (34.0-71.1) % Lymph % (Auto) (19.3-51.7) % [place] % (Auto) (4.7-12.5) % Eos % (Auto) (0.7-5.8) Baso % (Auto) (0.1-1.2) % Neut # (Auto) (1.56-6.13) K/mm3 Lymph # (Auto) (1.18-3.74) K/mm3 [place] # (Auto) (0.24-0.36) K/mm3 Eos # (Auto) (0.04-0.36) K/mm3 Baso # (Auto) (0.01-0.08) K/mm3 Sodium 118 L 127 L (136-145) mEq/L Potassium 3.3 L (3.5-5.1) mEq/L Chloride 84 L (98-107) mEq/L Carbon Dioxide 24 (21-32) mEq/L Anion Gap 13.3 (5-15) BUN (7-18) mg/dL Creatinine (0.55-1.02) mg/dL Est Cr Clr Drug Dosing mL/min Estimated GFR (MDRD) (>60) mL/min BUN/Creatinine Ratio (14-18) Glucose (83-115) mg/dL POC Glucose 172 H (83-110) mg/dL Calcium (8.5-10.1) mg/dL Magnesium (1.8-2.4) mg/dl Total Bilirubin (0.2-1.0) mg/dL AST (15-37) U/L ALT (14-59) U/L Alkaline Phosphatase (46-116) U/L Total Protein (6.4-8.2) g/dl Albumin (3.4-5.0) g/dl Globulin gm/dL Albumin/Globulin Ratio (1-2) Triglycerides (<150) mg/dL Cholesterol (<200) mg/dL LDL Cholesterol Direct (<100) mg/dL HDL Cholesterol (40-59) mg/dL 03/06/20 03/06/20 03/06/20 Range/Units 03:12 03:51 06:15 WBC (3.98-10.04) K/mm3 RBC (3.98-5.22) M/mm3 Hgb (11.2-15.7) gm/dl Hct (34.1-44.9) % MCV (79.4-94.8) fl MCH (25.6-32.2) pg MCHC (32.2-35.5) g/dl RDW Std Deviation (36.4-46.3) fL Plt Count (182-369) K/mm3 MPV (9.4-12.3) fl Neut % (Auto) (34.0-71.1) % Lymph % (Auto) (19.3-51.7) % [place] % (Auto) (4.7-12.5) % Eos % (Auto) (0.7-5.8) Baso % (Auto) (0.1-1.2) % Neut # (Auto) (1.56-6.13) K/mm3 Lymph # (Auto) (1.18-3.74) K/mm3 [place] # (Auto) (0.24-0.36) K/mm3 Eos # (Auto) (0.04-0.36) K/mm3 Baso # (Auto) (0.01-0.08) K/mm3 Sodium (136-145) mEq/L Potassium (3.5-5.1) mEq/L Chloride (98-107) mEq/L Carbon Dioxide (21-32) mEq/L Anion Gap (5-15) BUN (7-18) mg/dL Creatinine (0.55-1.02) mg/dL Est Cr Clr Drug Dosing mL/min Estimated GFR (MDRD) (>60) mL/min BUN/Creatinine Ratio (14-18) Glucose (83-115) mg/dL POC Glucose 154 H 158 H (83-110) mg/dL Calcium (8.5-10.1) mg/dL Magnesium (1.8-2.4) mg/dl Total Bilirubin (0.2-1.0) mg/dL AST (15-37) U/L ALT (14-59) U/L Alkaline Phosphatase (46-116) U/L Total Protein (6.4-8.2) g/dl Albumin (3.4-5.0) g/dl Globulin gm/dL Albumin/Globulin Ratio (1-2) Triglycerides 106 (<150) mg/dL Cholesterol 153 (<200) mg/dL LDL Cholesterol Direct 60 (<100) mg/dL HDL Cholesterol 67.0 H (40-59) mg/dL 03/06/20 03/06/20 03/06/20 Range/Units 06:15 06:15 06:32 WBC 12.14 H (3.98-10.04) K/mm3 RBC 4.35 (3.98-5.22) M/mm3 Hgb 12.4 (11.2-15.7) gm/dl Hct 37.4 (34.1-44.9) % MCV 86.0 (79.4-94.8) fl MCH 28.5 (25.6-32.2) pg MCHC 33.2 (32.2-35.5) g/dl RDW Std Deviation 39.0 (36.4-46.3) fL Plt Count 367 (182-369) K/mm3 MPV 9.1 L (9.4-12.3) fl Neut % (Auto) 77.3 H (34.0-71.1) % Lymph % (Auto) 14.4 L (19.3-51.7) % [place] % (Auto) 6.7 (4.7-12.5) % Eos % (Auto) 1.0 (0.7-5.8) Baso % (Auto) 0.2 (0.1-1.2) % Neut # (Auto) 9.39 H (1.56-6.13) K/mm3 Lymph # (Auto) 1.75 (1.18-3.74) K/mm3 [place] # (Auto) 0.81 H (0.24-0.36) K/mm3 Eos # (Auto) 0.12 (0.04-0.36) K/mm3 Baso # (Auto) 0.02 (0.01-0.08) K/mm3 Sodium 131 L (136-145) mEq/L Potassium 4.2 (3.5-5.1) mEq/L Chloride 96 L D (98-107) mEq/L Carbon Dioxide 26 (21-32) mEq/L Anion Gap 13.2 (5-15) BUN 11 (7-18) mg/dL Creatinine 1.1 H (0.55-1.02) mg/dL Est Cr Clr Drug Dosing 38.82 mL/min Estimated GFR (MDRD) 48 (>60) mL/min BUN/Creatinine Ratio 10.0 L (14-18) Glucose 156 H (83-115) mg/dL POC Glucose 151 H (83-110) mg/dL Calcium 8.3 L (8.5-10.1) mg/dL Magnesium 2.3 (1.8-2.4) mg/dl Total Bilirubin 0.5 (0.2-1.0) mg/dL AST 13 L (15-37) U/L ALT 25 (14-59) U/L Alkaline Phosphatase 42 L (46-116) U/L Total Protein 6.8 (6.4-8.2) g/dl Albumin 3.4 (3.4-5.0) g/dl Globulin 3.4 gm/dL Albumin/Globulin Ratio 1.0 (1-2) Triglycerides (<150) mg/dL Cholesterol (<200) mg/dL LDL Cholesterol Direct (<100) mg/dL HDL Cholesterol (40-59) mg/dL 03/06/20 03/06/20 Range/Units 10:57 14:05 WBC (3.98-10.04) K/mm3 RBC (3.98-5.22) M/mm3 Hgb (11.2-15.7) gm/dl Hct (34.1-44.9) % MCV (79.4-94.8) fl MCH (25.6-32.2) pg MCHC (32.2-35.5) g/dl RDW Std Deviation (36.4-46.3) fL Plt Count (182-369) K/mm3 MPV (9.4-12.3) fl Neut % (Auto) (34.0-71.1) % Lymph % (Auto) (19.3-51.7) % [place] % (Auto) (4.7-12.5) % Eos % (Auto) (0.7-5.8) Baso % (Auto) (0.1-1.2) % Neut # (Auto) (1.56-6.13) K/mm3 Lymph # (Auto) (1.18-3.74) K/mm3 [place] # (Auto) (0.24-0.36) K/mm3 Eos # (Auto) (0.04-0.36) K/mm3 Baso # (Auto) (0.01-0.08) K/mm3 Sodium 123 L (136-145) mEq/L Potassium (3.5-5.1) mEq/L Chloride (98-107) mEq/L Carbon Dioxide (21-32) mEq/L Anion Gap (5-15) BUN (7-18) mg/dL Creatinine (0.55-1.02) mg/dL Est Cr Clr Drug Dosing mL/min Estimated GFR (MDRD) (>60) mL/min BUN/Creatinine Ratio (14-18) Glucose (83-115) mg/dL POC Glucose 207 H (83-110) mg/dL Calcium (8.5-10.1) mg/dL Magnesium (1.8-2.4) mg/dl Total Bilirubin (0.2-1.0) mg/dL AST (15-37) U/L ALT (14-59) U/L Alkaline Phosphatase (46-116) U/L Total Protein (6.4-8.2) g/dl Albumin (3.4-5.0) g/dl Globulin gm/dL Albumin/Globulin Ratio (1-2) Triglycerides (<150) mg/dL Cholesterol (<200) mg/dL LDL Cholesterol Direct (<100) mg/dL HDL Cholesterol (40-59) mg/dL Darryl Results Last 24 Hours: Microbiology 03/04/20 18:34 Quick Strep Confirmation Culture - Final Throat NEGATIVE FOR BETA STREP REFERENCE RANGE: NEGATIVE Group A Streptococcus Rapid Screen - Final NEGATIVE STREP A SCREEN REFERENCE RANGE: NEGATIVE Med Orders - Current: Current Medications Acetaminophen (Tylenol) 650 mg PO Q6H PRN PRN Reason: Fever >100.4 or mild pain Last Admin: 03/05/20 17:44 Dose: 650 mg Documented by: Cosyntropin (Cortrosyn) 0.25 mg IV ASDIRECTED SHAUNA Last Admin: 03/06/20 09:08 Dose: 0.25 mg Documented by: Dextrose/Water (Dextrose 50% In Water) 0 ml IVPUSH ASDIRECTED PRN; Protocol PRN Reason: Hypoglycemia Famotidine (Pepcid) 20 mg PO BID SHAUNA Fenofibrate (Tricor) 0.5 mg PO BID [facility] Last Admin: 03/06/20 08:41 Dose: 0.5 mg Documented by: Promethazine HCl 12.5 mg/ (Sodium Chloride) 50.5 mls @ 100 mls/hr IV Q6H PRN PRN Reason: Nausea/Vomiting Last Admin: 03/05/20 11:16 Dose: 100 mls/hr Documented by: Dextrose/Water (Dextrose 5% In Water) 1,000 mls @ 100 mls/hr IV ASDIRECTED [facility] Last Admin: 03/06/20 08:42 Dose: 100 mls/hr Documented by: Insulin Human Lispro (Humalog) 0 unit SUBCUT QIDACANDBED [facility]; Protocol Last Admin: 03/06/20 11:25 Dose: 3 units Documented by: Melatonin (Melatonin) 6 mg PO BEDTIME PRN PRN Reason: Insomnia Last Admin: 03/04/20 23:25 Dose: 6 mg Documented by: Ondansetron HCl (Zofran) 4 mg IVPUSH Q4H PRN PRN Reason: Nausea/Vomiting Sodium Chloride (Saline Flush) 10 ml FLUSH ASDIRECTED PRN PRN Reason: Keep Vein Open Last Admin: 03/04/20 19:13 Dose: 10 ml Documented by: Discontinued Medications Acetaminophen (Tylenol) 650 mg PO Q4H PRN PRN Reason: Pain (Mild 1-3)/fever Last Admin: 03/04/20 23:26 Dose: 650 mg Documented by: Cosyntropin (Cortrosyn) 0.25 mg IM ASDIRECTED [facility] Desmopressin Acetate (Desmopressin) 1 mcg SUBCUT ONETIME ONE Stop: 03/06/20 02:20 Last Admin: 03/06/20 02:53 Dose: Not Given Documented by: Desmopressin Acetate (Desmopressin) 1 mcg SUBCUT ONETIME ONE Stop: 03/06/20 02:46 Last Admin: 03/06/20 02:53 Dose: 1 mcg Documented by: Desmopressin Acetate (Desmopressin) 1 mcg SUBCUT ONETIME ONE Stop: 03/06/20 08:21 Last Admin: 03/06/20 08:47 Dose: 1 mcg Documented by: Enoxaparin Sodium (Lovenox) 40 mg SUBCUT DAILY [facility] Last Admin: 03/05/20 08:39 Dose: 40 mg Documented by: Famotidine (Pepcid) 20 mg IVPUSH BID [facility] Last Admin: 03/06/20 08:42 Dose: 20 mg Documented by: Fenofibrate (Tricor) 145 mg PO DAILY [facility] Sodium Chloride (Normal Saline) 1,000 mls @ 999 mls/hr IV ONETIME ONE Stop: 03/04/20 19:47 Last Admin: 03/04/20 19:13 Dose: 999 mls/hr Documented by: Sodium Chloride (Normal Saline) 1,000 mls @ 125 mls/hr IV ASDIRECTED [facility] Last Admin: 03/04/20 22:40 Dose: 125 mls/hr Documented by: Magnesium Sulfate 4 gm/ Premix 50 mls @ 12.5 mls/hr IV ONETIME ONE Stop: 03/05/20 03:50 Last Admin: 03/05/20 00:12 Dose: 12.5 mls/hr Documented by: Sodium Chloride (Sodium Chloride 3%) 500 mls @ 30 mls/hr IV ASDIRECTED [facility] Last Admin: 03/05/20 08:39 Dose: 30 mls/hr Documented by: Potassium Chloride 10 meq/ (Premix) 100 mls @ 100 mls/hr IV Q1H [facility] Stop: 03/05/20 13:59 Last Admin: 03/05/20 16:00 Dose: 100 mls/hr Documented by: Potassium Chloride 10 meq/ (Premix) 100 mls @ 100 mls/hr IV Q1H [facility] Stop: 03/05/20 17:29 Last Admin: 03/05/20 21:57 Dose: Not Given Documented by: Sodium Chloride (Sodium Chloride 3%) 500 mls @ 30 mls/hr IV ASDIRECTED [facility] Last Admin: 03/06/20 01:01 Dose: 30 mls/hr Documented by: Sodium Chloride (Sodium Chloride 3%) 500 mls @ 100 mls/hr IV ASDIRECTED [facility] Potassium Chloride 10 meq/ (Premix) 100 mls @ 100 mls/hr IV Q1H [facility] Stop: 03/05/20 22:59 Last Admin: 03/05/20 21:57 Dose: 100 mls/hr Documented by: Dextrose/Water (Dextrose 5% In Water) 1,000 mls @ 150 mls/hr IV ASDIRECTED [facility] Stop: 03/06/20 04:45 Last Admin: 03/06/20 03:14 Dose: 150 mls/hr Documented by: Metoclopramide HCl (Reglan) 10 mg IVPUSH ONETIME ONE Stop: 03/04/20 18:59 Last Admin: 03/04/20 19:13 Dose: 10 mg Documented by: Ondansetron HCl (Zofran Odt) 4 mg PO ONETIME ONE Stop: 03/04/20 18:31 Last Admin: 03/04/20 18:34 Dose: 4 mg Documented by: Ondansetron HCl (Zofran) 4 mg IV Q4H PRN PRN Reason: Nausea/Vomiting Last Admin: 03/05/20 07:12 Dose: 4 mg Documented by: Potassium Chloride (Klor-Con M20) 20 meq PO ONETIME ONE Stop: 03/04/20 23:52 Last Admin: 03/05/20 00:08 Dose: 20 meq Documented by: - Exam Physical Findings Comments:: General: Alert, Oriented, Sitting up in chair, no acute distress HEENT: EOMI, Pupils Equal, Other (dry oral mucuosa, without erythema or swelling. No exudates present and no swelling of tonsil. ) Neck: Supple Lungs: Clear to Auscultation Cardiovascular: Regular Rate, Regular Rhythm, Normal S1, Normal S2 GI/Abdominal Exam: Normal Bowel Sounds, Soft, non tender. Extremities: Normal Inspection, Non-Tender, Normal Capillary Refill, Pedal Edema (1+), hands now without tremors. No: Alma's Sign Peripheral Pulses: 2+: Posterior Tibial (L), Posterior Tibial (R) Skin: Warm, Dry, Intact Neurological: Normal Speech, Normal Tone, Other (PERRL, EOMs intact, no facial droop). No: Focal Deficit Neuro Extensive - Mental Status: Alert, Oriented x3, Normal Mood/Affect, Normal Cognition, Memory Intact Psychiatric: Alert, Normal Affect, Normal Mood Sepsis Event Note - Evaluation Sepsis Screening Result: No Definite Risk - Focused Exam Vital Signs: Vital Signs Temp Pulse Resp BP Pulse Ox 03/06/20 11:37 97.5 F 68 20 127/79 97 03/06/20 08:38 97.9 F 82 16 96/48 L 95 03/06/20 04:58 98.1 F 80 20 110/61 95 - Problem List & Annotations (1) Hyponatremia SNOMED Code(s): 71893696 Code(s): E87.1 - HYPO-OSMOLALITY AND HYPONATREMIA Status: Acute Priority: High Current Visit: Yes (2) Vomiting and diarrhea SNOMED Code(s): 878254670 Code(s): R11.10 - VOMITING, UNSPECIFIED; R19.7 - DIARRHEA, UNSPECIFIED Status: Acute Current Visit: Yes (3) Throat pain in adult SNOMED Code(s): 739869168 Code(s): R07.0 - PAIN IN THROAT Status: Acute Current Visit: Yes (4) Leukocytosis SNOMED Code(s): 980241464, 423689332 Code(s): D72.829 - ELEVATED WHITE BLOOD CELL COUNT, UNSPECIFIED Status: Acute Current Visit: No (5) Hypokalemia SNOMED Code(s): 58094179 Code(s): E87.6 - HYPOKALEMIA Status: Acute Current Visit: Yes (6) Hypomagnesemia SNOMED Code(s): 013414302 Code(s): E83.42 - HYPOMAGNESEMIA Status: Acute Current Visit: Yes - Problem List Review Problem List Initiated/Reviewed/Updated: Yes - My Orders Last 24 Hours: My Active Orders 03/05/20 Dinner Fluid Restriction [DIET] 03/05/20 17:21 Acetaminophen [Tylenol] 650 mg PO Q6H PRN 03/05/20 17:22 Ondansetron [Zofran] 4 mg IVPUSH Q4H PRN 03/05/20 19:59 Patient Status [ADT] Routine 03/06/20 08:30 Dextrose 5% in Water 1,000 ml IV ASDIRECTED 03/06/20 09:00 Cosyntropin [Cortrosyn] 0.25 mg IV ASDIRECTED 03/06/20 10:39 Dextrose 50% in Water See Protocol IVPUSH ASDIRECTED PRN 03/06/20 11:00 Insulin Lispro [HumaLOG] See Protocol SUBCUT QIDACANDBED 03/06/20 19:00 SODIUM,NA [CHEM] Routine 03/06/20 21:00 Famotidine [Pepcid] 20 mg PO BID - Assessment Assessment:: Overnight, patient's sodium increased to 127 from 118. Pt given desmopressin 1mcg and sodium rechecked in the AM as sodium was increasing too quickly. Changed NS 3% today D5 w/ water. 5AM labs revealed sodium at 131. Sodium was rechecked again at 2pm and is at 123. IV fluids stopped. - Plan Plan:: Symptomatic Hyponatremia. -Overnight, patient's sodium increased to 127 from 118 after NS 3% 250ml at 50ml/hr. Pt given desmopressin 1mcg and sodium rechecked in the AM as sodium was increasing too quickly. Changed NS 3% today D5 w/ water. 5AM labs revealed so dium at 131. Sodium was rechecked again at 2pm and is at 123. -Stopping D5 w/ water. Stopping IV fluids. -Recheck sodium level at 7 this evening. If sodium continues to decrease we will start cautious NS 3% again and recheck in AM. -Cortisol and ACTH stimulation test performed this AM. -Will keep patient on continuous cardiac monitoring. -Will stop HCTZ on discharge. Leukocytosis. Improving. WBC 12.14 from 16.6. -For now, we do not find source of infection. UA negative, CXR negative. Pt afebrile, abdominal pain minimal. -Most likely due to stress. -Will trend CBC, will monitor vitals. Odynophagia. -Appears to be more GERD related. -Will enforce antacid therapy and acid reflux precautions, pepcid 20mg BID. Vomiting/nausea. -Improved. -Zofran 4mg q4h as needed for N/V. -Phenergan 12.5mg IV as needed for continued N/V. Hypokalemia -Resolved. Potassium is 4.2. Will recheck electrolytes in the AM. Hypomagnesemia. -Mg is 2.3. -Repeat electrolyte panel and magnesium in AM. GI prophylaxis. Pepcid 20mg po BID as patient is vomiting and has GERD symptoms. DVT prophylaxis. Pt refusing lovenox. Will place SCDs and antiembolic stocking bilaterally.
[2020-03-06] MEDS ORDERED: Sodium Chloride 1 GM Tab PO ONE (18:00)
[2020-03-06] MEDS ORDERED: Magnesium Hydroxide 400 MG/5 ML Susp 30 ML Cup PO ONE (19:27)
[2020-03-06] MEDS ORDERED: Benzocaine/Cetylpyridinium/Menthol Lozenge MUCMEM PRN (19:27)
[2020-03-06] MEDS: Acetaminophen 325 MG/10.15 ML ML PO PRN (20:41)
[2020-03-06] MEDS ORDERED: Famotidine 20 MG Tab PO SCH (21:00)
[2020-03-07] MEDS: Acetaminophen 325 MG/10.15 ML ML PO PRN (02:40)
[2020-03-07] MEDS ORDERED: Sodium Chloride 1 GM Tab PO ONE (07:24)
[2020-03-07] MEDS: Insulin Lispro 100 Units/ML 3 ML Vial SUBCUT SCH ×2 (08:21→12:12)
[2020-03-07] MEDS ORDERED: Fenofibrate Nanocrystallized 145 MG Tab PO SCH (09:00)
[2020-03-07 09:26] VITALS: BP 156/80; PULSE 65
[2020-03-07] MEDS ORDERED: Nystatin Susp 100,000 Unit/ML 5 ML Oral Syringe PO SCH ×2 (09:35→09:38)
--- NOTE | 2020-03-07 13:27 | PCM.DCSUM1 ---
Discharge Summary - Hospital Course HPI Initial Comments: The patient is a 79 yo female, PCP Dr. Mccray and Dr. Klein, with a past medical history of hypertension, hyperlipidemia, osteoarthritis, diabetes mellitus type II , and migraines. The patient presented to the emergency room on 03/05/2020 evening after experiencing diarrhea, burning throat pain, and dizziness. The patient's throat pain was deep and she felt like it goes down into her stomach. She had not eaten anything since the day before yesterday because pain increased with swallowing food. She has also had diarrhea for the past day. She denied blood in stool or in vomit. She was dizzy, the room spinning, and had shaking, chills. No blurred vision. She denied fever. She denied any recent changes in medication. In the ED, vital signs w/ temp 98.4, pulse 87, RR 18, BP 168/90, pulse ox 97% on RA. The patient was found with WBC 13.69, H/H normal, sodium 116. Strep test negative. UA negative for infection. She was given 1L NS bolus, started on NS @125 ml/hr, given reglan 10mg IV x1 and zofran 4mg oral x1. EKG was NSR without ST elevation or depression. COVID 19 test negative. EKG without acute cardiopulmonary disease. The patient was admitted to the hospital for symptomatic hyponatremia and leukocytosis. - Discharge Data Discharge Date: 03/07/20 Discharge Disposition: Home, Self-Care 01 Condition: Good - Referral to Home Health Primary Care Physician: Agueda Mccray MD - Discharge Diagnosis/Problem(s) (1) Hyponatremia SNOMED Code(s): 31495509 ICD Code: E87.1 - HYPO-OSMOLALITY AND HYPONATREMIA Status: Acute Priority: High Current Visit: Yes (2) Vomiting and diarrhea SNOMED Code(s): 613606094 ICD Code: R11.10 - VOMITING, UNSPECIFIED; R19.7 - DIARRHEA, UNSPECIFIED Status: Acute Current Visit: Yes (3) Throat pain in adult SNOMED Code(s): 884078250 ICD Code: R07.0 - PAIN IN THROAT Status: Acute Current Visit: Yes (4) Leukocytosis SNOMED Code(s): 992599522, 349600628 ICD Code: D72.829 - ELEVATED WHITE BLOOD CELL COUNT, UNSPECIFIED Status: Acute Current Visit: No (5) Hypokalemia SNOMED Code(s): 67745499 ICD Code: E87.6 - HYPOKALEMIA Status: Acute Current Visit: Yes (6) Hypomagnesemia SNOMED Code(s): 519166310 ICD Code: E83.42 - HYPOMAGNESEMIA Status: Acute Current Visit: Yes - Patient Summary/Data Hospital Course: The patient was started on NS 9% and Sodium checked the next morning, remained low at 116. She was started on NS 3% at a rate of 30mls/hr. Sodium level checked every 4 hours. 8 hours after starting NS 3%, sodium level only up to 118. Rate of fluids was increased to 50ml/hr. Recheck of sodium level was 127. We did not want to increase sodium level to fast and to avoid pontine demyelination, we gave desmopressin 1mcg x1, sodium was rechecked and came up to 131, patient given another dose of desmopressin 1mc. Fluids w/ D5 in water were started for patient. For last 24 hours, the patient no longer with vomiting or nausea, no longer with tremors and does not feel weak. Last night, fluids were stopped and patient was given Sodium 1g tab, another sodium 1g tab given this morning. Sodium has remained today sodium 126-127. She has been able to tolerate diet. She is able to ambulate on own without assistance. She denies changes in vision, chest pain, shortness of breath, or weakness. No dizziness. The patient is found with thrush and was started on nystatin swish and swallow QID, this will be continued for 6 more days. The patient will be discharged on Sodium 1g tabs twice a day. She will follow up on Tuesday with lab work and we will schedule destiny ointment with Dr. Gia Klein for Tuesday or Tuesday. She is to have a 1500ml fluid restriction. She is prescribed losartan 50mg daily but should stop taking hydrochlorothiazide. PCP will discuss if this needs to be continued at appointment. - Patient Instructions Diet: Fluid Restriction (1500), Diabetic Diet Fluid Restriction: 1500 mL Other/Special Instructions: Stop taking losartan/hydrochlorothiazide. We have prescribed losartan 50mg oral daily. Take this instead. Use 5ml nystatin four times a day for 6 more days. This is to be swished in mouth and swallowed. - Discharge Plan Prescriptions/Med Rec: Losartan [Cozaar] 50 mg PO DAILY 30 Days #30 tab Nystatin [Nystatin Oral Syringe] 5 ml PO QID 6 Days #120 ml Sodium Chloride 1,000 mg MC BID 7 Days #12 tablet.[email or web address] Home Medications: Home Meds Calcium Carbonate [Calcium] 1,000 mg PO BEDTIME 03/04/20 [History] Cholecalciferol (Vitamin D3) [Vitamin D3] 1,000 unit PO DAILY 03/04/20 [History] Fenofibrate Nanocrystallized [Fenofibrate] 0.5 tab PO BID 03/04/20 [History] SUMAtriptan succinate [Imitrex] 50 mg PO ASDIRECTED PRN 03/04/20 [History] Stem Cell Maxum 1 tab PO DAILY 03/04/20 [History] Losartan [Cozaar] 50 mg PO DAILY 30 Days #30 tab 03/07/20 [Rx] Nystatin [Nystatin Oral Syringe] 5 ml PO QID 6 Days #120 ml 03/07/20 [Rx] Sodium Chloride 1,000 mg MC BID 7 Days #12 tablet.[email or web address] 03/07/20 [Rx] Patient Handouts: Sodium Test, Water Intoxication Referrals: Gia Klein MD [Physician] - 03/11/20 8:00 am (Please follow up Dr. Klein on March 11 at 8:00. Please have labs drawn anytime on Tuesday. ) - Discharge Summary/Plan Comment DC Time >30 min.: Yes Discharge Summary/Plan Comment: -Nystatin swish and swallow QID, this will be continued for 6 more days. -Sodium 1g tabs twice a day. She will follow up on Tuesday with lab work and we will schedule appointment with Dr. Gia Klein for Tuesday at 8 AM. -She is to have a 1500ml fluid restriction and will decide w/ PCP on Tuesday if this will be continued. -She is prescribed losartan 50mg daily but should stop taking hydrochlorothiazide. PCP will discuss if this needs to be continued at appoint ment. - General Info Date of Service: 03/07/20 Subjective Update: HEENT: Reports:Sore Throat that has improved, no longer with headache. Pulmonary: Reports: No Symptoms Cardiovascular: Reports: No Symptoms Gastrointestinal: Reports: no more Diarrhea, no more nausea or vomiting Genitourinary: Reports: No Symptoms Neurological: Reports: No longer with tremors, dizziness, or headaches - Patient Data Vitals - Most Recent: Last Vital Signs Temp 97.9 F 03/07/20 08:28 Pulse 65 03/07/20 08:28 Resp 13 03/07/20 08:28 BP 156/80 H 03/07/20 08:28 Pulse Ox 98 03/07/20 08:28 Weight - Most Recent: 162 lb 3.2 oz I&O - Last 24 hours: Intake & Output 03/06/20 03/07/20 03/07/20 22:59 06:59 14:59 Intake Total 1518 250 Output Total 150 650 Balance 1368 -400 Lab Results - Last 24 hrs: Laboratory Results - last 24 hr 03/06/20 03/06/20 03/06/20 Range/Units 09:08 14:05 16:47 WBC (3.98-10.04) K/mm3 RBC (3.98-5.22) M/mm3 Hgb (11.2-15.7) gm/dl Hct (34.1-44.9) % MCV (79.4-94.8) fl MCH (25.6-32.2) pg MCHC (32.2-35.5) g/dl RDW Std Deviation (36.4-46.3) fL Plt Count (182-369) K/mm3 MPV (9.4-12.3) fl Neut % (Auto) (34.0-71.1) % Lymph % (Auto) (19.3-51.7) % [place] % (Auto) (4.7-12.5) % Eos % (Auto) (0.7-5.8) Baso % (Auto) (0.1-1.2) % Neut # (Auto) (1.56-6.13) K/mm3 Lymph # (Auto) (1.18-3.74) K/mm3 [place] # (Auto) (0.24-0.36) K/mm3 Eos # (Auto) (0.04-0.36) K/mm3 Baso # (Auto) (0.01-0.08) K/mm3 Sodium 123 L (136-145) mEq/L Potassium (3.5-5.1) mEq/L Chloride (98-107) mEq/L Carbon Dioxide (21-32) mEq/L Anion Gap (5-15) POC Glucose 175 H (83-110) mg/dL Magnesium (1.8-2.4) mg/dl Cortisol Resp to ACTH 11.4 ug/dL Cortisol Resp ACTH 30m 22.4 ug/dL Cortisol Resp ACTH 60m 26.4 ug/dL 03/06/20 03/06/20 03/07/20 Range/Units 19:07 21:26 05:53 WBC 10.82 H (3.98-10.04) K/mm3 RBC 3.71 L (3.98-5.22) M/mm3 Hgb 10.5 L D (11.2-15.7) gm/dl Hct 32.1 L (34.1-44.9) % MCV 86.5 (79.4-94.8) fl MCH 28.3 (25.6-32.2) pg MCHC 32.7 (32.2-35.5) g/dl RDW Std Deviation 39.0 (36.4-46.3) fL Plt Count 297 (182-369) K/mm3 MPV 9.2 L (9.4-12.3) fl Neut % (Auto) 70.7 (34.0-71.1) % Lymph % (Auto) 18.9 L (19.3-51.7) % [place] % (Auto) 7.0 (4.7-12.5) % Eos % (Auto) 2.7 (0.7-5.8) Baso % (Auto) 0.3 (0.1-1.2) % Neut # (Auto) 7.65 H (1.56-6.13) K/mm3 Lymph # (Auto) 2.05 (1.18-3.74) K/mm3 [place] # (Auto) 0.76 H (0.24-0.36) K/mm3 Eos # (Auto) 0.29 (0.04-0.36) K/mm3 Baso # (Auto) 0.03 (0.01-0.08) K/mm3 Sodium 127 L (136-145) mEq/L Potassium (3.5-5.1) mEq/L Chloride (98-107) mEq/L Carbon Dioxide (21-32) mEq/L Anion Gap (5-15) POC Glucose 161 H (83-110) mg/dL Magnesium (1.8-2.4) mg/dl Cortisol Resp to ACTH ug/dL Cortisol Resp ACTH 30m ug/dL Cortisol Resp ACTH 60m ug/dL 03/07/20 03/07/20 03/07/20 Range/Units 05:53 06:48 12:20 WBC (3.98-10.04) K/mm3 RBC (3.98-5.22) M/mm3 Hgb (11.2-15.7) gm/dl Hct (34.1-44.9) % MCV (79.4-94.8) fl MCH (25.6-32.2) pg MCHC (32.2-35.5) g/dl RDW Std Deviation (36.4-46.3) fL Plt Count (182-369) K/mm3 MPV (9.4-12.3) fl Neut % (Auto) (34.0-71.1) % Lymph % (Auto) (19.3-51.7) % [place] % (Auto) (4.7-12.5) % Eos % (Auto) (0.7-5.8) Baso % (Auto) (0.1-1.2) % Neut # (Auto) (1.56-6.13) K/mm3 Lymph # (Auto) (1.18-3.74) K/mm3 [place] # (Auto) (0.24-0.36) K/mm3 Eos # (Auto) (0.04-0.36) K/mm3 Baso # (Auto) (0.01-0.08) K/mm3 Sodium 126 L 126 L (136-145) mEq/L Potassium 3.7 (3.5-5.1) mEq/L Chloride 93 L (98-107) mEq/L Carbon Dioxide 26 (21-32) mEq/L Anion Gap 10.7 (5-15) POC Glucose 130 H (83-110) mg/dL Magnesium 1.9 (1.8-2.4) mg/dl Cortisol Resp to ACTH ug/dL Cortisol Resp ACTH 30m ug/dL Cortisol Resp ACTH 60m ug/dL FIFI Results - Last 24 hrs: Microbiology 03/04/20 18:34 Quick Strep Confirmation Culture - Final Throat NEGATIVE FOR BETA STREP REFERENCE RANGE: NEGATIVE Group A Streptococcus Rapid Screen - Final NEGATIVE STREP A SCREEN REFERENCE RANGE: NEGATIVE Med Orders - Current: Current Medications Acetaminophen (Tylenol) 650 mg PO Q6H PRN PRN Reason: Fever >100.4 or mild pain Last Admin: 03/07/20 02:40 Dose: 650 mg Documented by: Benzocaine/Menthol (Cepacol Sore Throat) 1 lozenge MUCMEM Q2HR PRN PRN Reason: Throat irritation Last Admin: 03/06/20 20:41 Dose: 1 lozenge Documented by: Dextrose/Water (Dextrose 50% In Water) 0 ml IVPUSH ASDIRECTED PRN; Protocol PRN Reason: Hypoglycemia Famotidine (Pepcid) 20 mg PO BEDTIME SHAUNA Fenofibrate (Tricor) 72.5 mg PO BID SHAUNA Last Admin: 03/07/20 08:23 Dose: 72.5 mg Documented by: Promethazine HCl 12.5 mg/ (Sodium Chloride) 50.5 mls @ 100 mls/hr IV Q6H PRN PRN Reason: Nausea/Vomiting Last Admin: 03/05/20 11:16 Dose: 100 mls/hr Documented by: Insulin Human Lispro (Humalog) 0 unit SUBCUT QIDACANDBED [facility]; Protocol Last Admin: 03/07/20 12:12 Dose: 3 units Documented by: Melatonin (Melatonin) 6 mg PO BEDTIME PRN PRN Reason: Insomnia Last Admin: 03/04/20 23:25 Dose: 6 mg Documented by: Nystatin (Nystatin Oral Syringe) 500,000 unit PO QID [facility] Ondansetron HCl (Zofran) 4 mg IVPUSH Q4H PRN PRN Reason: Nausea/Vomiting Sodium Chloride (Saline Flush) 10 ml FLUSH ASDIRECTED PRN PRN Reason: Keep Vein Open Last Admin: 03/04/20 19:13 Dose: 10 ml Documented by: Discontinued Medications Acetaminophen (Tylenol) 650 mg PO Q4H PRN PRN Reason: Pain (Mild 1-3)/fever Last Admin: 03/04/20 23:26 Dose: 650 mg Documented by: Cosyntropin (Cortrosyn) 0.25 mg IM ASDIRECTED [facility] Cosyntropin (Cortrosyn) 0.25 mg IV ASDIRECTED SHAUNA Last Admin: 03/06/20 09:08 Dose: 0.25 mg Documented by: Desmopressin Acetate (Desmopressin) 1 mcg SUBCUT ONETIME ONE Stop: 03/06/20 02:20 Last Admin: 03/06/20 02:53 Dose: Not Given Documented by: Desmopressin Acetate (Desmopressin) 1 mcg SUBCUT ONETIME ONE Stop: 03/06/20 02:46 Last Admin: 03/06/20 02:53 Dose: 1 mcg Documented by: Desmopressin Acetate (Desmopressin) 1 mcg SUBCUT ONETIME ONE Stop: 03/06/20 08:21 Last Admin: 03/06/20 08:47 Dose: 1 mcg Documented by: Enoxaparin Sodium (Lovenox) 40 mg SUBCUT DAILY [facility] Last Admin: 03/05/20 08:39 Dose: 40 mg Documented by: Famotidine (Pepcid) 20 mg IVPUSH BID [facility] Last Admin: 03/06/20 08:42 Dose: 20 mg Documented by: Famotidine (Pepcid) 20 mg PO BID [facility] Last Admin: 03/06/20 20:34 Dose: 20 mg Documented by: Fenofibrate (Tricor) 145 mg PO DAILY [facility] Fenofibrate (Tricor) 0.5 mg PO BID [facility] Last Admin: 03/06/20 20:35 Dose: 0.5 mg Documented by: Sodium Chloride (Normal Saline) 1,000 mls @ 999 mls/hr IV ONETIME ONE Stop: 03/04/20 19:47 Last Admin: 03/04/20 19:13 Dose: 999 mls/hr Documented by: Sodium Chloride (Normal Saline) 1,000 mls @ 125 mls/hr IV ASDIRECTED [facility] Last Admin: 03/04/20 22:40 Dose: 125 mls/hr Documented by: Magnesium Sulfate 4 gm/ Premix 50 mls @ 12.5 mls/hr IV ONETIME ONE Stop: 03/05/20 03:50 Last Admin: 03/05/20 00:12 Dose: 12.5 mls/hr Documented by: Sodium Chloride (Sodium Chloride 3%) 500 mls [facility] 30 [facility] Last Admin: 03/05/20 08:39 Dose: 30 mls/hr Documented by: Potassium Chloride 10 meq/ (Premix) 100 mls @ 100 mls/hr IV Q1H [facility] Stop: 03/05/20 13:59 Last Admin: 03/05/20 16:00 Dose: 100 mls/hr Documented by: Potassium Chloride 10 meq/ (Premix) 100 mls @ 100 mls/hr IV Q1H [facility] Stop: 03/05/20 17:29 Last Admin: 03/05/20 21:57 Dose: Not Given Documented by: Sodium Chloride (Sodium Chloride 3%) 500 mls @ 30 mls/hr IV ASDIRECTED [facility] Last Admin: 03/06/20 01:01 Dose: 30 mls/hr Documented by: Sodium Chloride (Sodium Chloride 3%) 500 mls @ 100 mls/hr IV ASDIRECTED [facility] Potassium Chloride 10 meq/ (Premix) 100 mls @ 100 mls/hr IV Q1H [facility] Stop: 03/05/20 22:59 Last Admin: 03/05/20 21:57 Dose: 100 mls/hr Documented by: Dextrose/Water (Dextrose 5% In Water) 1,000 mls @ 150 mls/hr IV ASDIRECTED [facility] Stop: 03/06/20 04:45 Last Admin: 03/06/20 03:14 Dose: 150 mls/hr Documented by: Dextrose/Water (Dextrose 5% In Water) 1,000 mls @ 100 mls/hr IV ASDIRECTED [facility] Last Admin: 03/06/20 08:42 Dose: 100 mls/hr Documented by: Magnesium Hydroxide (Milk Of Magnesia) 30 ml PO ONETIME ONE Stop: 03/06/20 19:28 Last Admin: 03/06/20 20:34 Dose: 30 ml Documented by: Metoclopramide HCl (Reglan) 10 mg IVPUSH ONETIME ONE Stop: 03/04/20 18:59 Last Admin: 03/04/20 19:13 Dose: 10 mg Documented by: Nystatin (Nystatin Oral Syringe) 5 unit PO QID [facility] Last Admin: 03/07/20 11:09 Dose: Not Given Documented by: Ondansetron HCl (Zofran Odt) 4 mg PO ONETIME ONE Stop: 03/04/20 18:31 Last Admin: 03/04/20 18:34 Dose: 4 mg Documented by: Ondansetron HCl (Zofran) 4 mg IV Q4H PRN PRN Reason: Nausea/Vomiting Last Admin: 03/05/20 07:12 Dose: 4 mg Documented by: Potassium Chloride (Klor-Con M20) 20 meq PO ONETIME ONE Stop: 03/04/20 23:52 Last Admin: 03/05/20 00:08 Dose: 20 meq Documented by: Sodium Chloride (Sodium Chloride) 1 gm PO ONETIME ONE Stop: 03/06/20 18:01 Last Admin: 03/06/20 17:46 Dose: 1 gm Documented by: Sodium Chloride (Sodium Chloride) 1 gm PO ONETIME ONE Stop: 03/07/20 07:25 Last Admin: 03/07/20 08:23 Dose: 1 gm Documented by: - Exam Physical Findings Comments:: General: Alert, Oriented, Sitting up in chair, no acute distress HEENT: EOMI, Pupils Equal, Other posterior oropharynx with erythema and some minimal white plaque which was not present on admission, no swollen tonsils, no exudate on tonsils. ) Neck: Supple, No tenderness to palpation from external, no thyromegaly appreciat ed. Lungs: Clear to Auscultation Cardiovascular: Regular Rate, Regular Rhythm, Normal S1, Normal S2 GI/Abdominal Exam: Normal Bowel Sounds, Soft, non tender. Extremities: Normal Inspection, Non-Tender, Normal Capillary Refill, No pedal edema, hands now without tremors. Skin: Warm, Dry, Intact Neurological: Normal Speech, Normal Tone, Other (PERRL, EOMs intact, no facial droop). No: Focal Deficit Neuro Extensive - Mental Status: Alert, Oriented x3, Normal Mood/Affect, Normal Cognition, Memory Intact Psychiatric: Alert, Normal Affect, Normal Mood
[2020-03-07] MEDS ORDERED: Famotidine 20 MG Tab PO SCH (21:00)
== END 2020-03-07 15:10 | disposition home or self-care (01) | DRG 641 ==
LOC: JD.ED 17:51 → JD.MS 21:07
PROVIDERS: ADMIT Family Medicine; ATTEND Family Medicine
DX: E87.1 Hypo-osmolality and hyponatremia (principal); R07.0 Pain in throat; H54.7 Unspecified visual loss; D72.829 Elevated white blood cell count, unspecified; Z20.828 Contact with and (suspected) exposure to other viral communicable diseases; E78.00 Pure hypercholesterolemia, unspecified; Z90.710 Acquired absence of both cervix and uterus; Z88.6 Allergy status to analgesic agent; E11.9 Type 2 diabetes mellitus without complications; G43.909 Migraine, unspecified, not intractable, without status migrainosus; Z79.84 Long term (current) use of oral hypoglycemic drugs; Z79.82 Long term (current) use of aspirin; I10 Essential (primary) hypertension; E83.42 Hypomagnesemia; E87.6 Hypokalemia; R13.10 Dysphagia, unspecified; Z88.1 Allergy status to other antibiotic agents; Z88.5 Allergy status to narcotic agent; Z88.8 Allergy status to other drugs, medicaments and biological substances; Z79.899 Other long term (current) drug therapy
CPT/HCPCS: 36415; 71045; 80053; 81001; 82728; 83615; 83880; 83930; 83935; 84300; 84484; 85025; 85379; 85610; 85730; 87081; 87430; 93005; 96361; 96374; 99285; A9270; J2765; J7030; U0002; 80048; 80051; 80061; 80400; 82533; 82962; 83735; 84295; 93010; 99222; 99232; 99239; J1650; J1815-GY; J2405; J2550; J2597; J3475; J3480; J3490; J7040; J7050; J7060

== ENCOUNTER 2020-07-11 16:08 | Emergency (ER) | payer MEDICARE, BC ==
[2020-07-11] MEDS ORDERED: Sodium Chloride 0.9% 1,000 ML IV STA (16:36)
[2020-07-11] MEDS ORDERED: Sodium Chloride 0.9% 10 ML Syringe FLUSH PRN (16:36)
[2020-07-11] MEDS ORDERED: Ondansetron 4 MG/2 ML SDV IVPUSH ONE (16:36)
--- NOTE | 2020-07-11 17:04 | EDM.PDOC ---
ED HPI GENERAL MEDICAL PROBLEM - General Chief Complaint: General Stated Complaint: VOMITING Time Seen by Provider: 07/11/20 16:28 Source of Information: Reports: Patient, RN Notes Reviewed History Limitations: Reports: No Limitations - History of Present Illness INITIAL COMMENTS - FREE TEXT/NARRATIVE: Patient is an 80 year old female presenting to the ER with c/o nausea and vo miting which began at approximated 1030 this morning. She also had one episode of a small amount of diarrhea. Patient states that she accidentally took a Tramadol instead of her blood pressure medication this morning and feels that this is likely the cause of her symptoms. She was prescribed this in the past but states that she never took the medication, so the bottle was still full. She denies any abdominal pain, fever, or chills. She has had not questional foods. She had a hamburger last night, but states that others ate the same thing and are not sick. Headache Pain Score (Numeric/FACES): 4 - Related Data Allergies Allergy/AdvReac Type Severity Reaction Status Date / Time azithromycin Allergy Severe Cannot Verified 03/04/20 22:25 Remember tramadol Allergy Severe Vomiting Verified 07/11/20 19:20 propoxyphene AdvReac Severe Nausea and Verified 03/04/20 22:25 Vomiting biaxin Allergy Severe Rash Uncoded 03/04/20 18:18 hydrocodone Allergy Severe Cannot Uncoded 03/04/20 18:18 Remember meclizine AdvReac Severe Dizziness Uncoded 03/04/20 18:18 trimethoprim AdvReac Severe Stomach Uncoded 03/04/20 18:18 Upset Home Meds: Home Meds Calcium Carbonate [Calcium] 1,000 mg PO BEDTIME 03/04/20 [History] Cholecalciferol (Vitamin D3) [Vitamin D3] 1,000 unit PO DAILY 03/04/20 [History] Fenofibrate Nanocrystallized [Fenofibrate] 0.5 tab PO BID 03/04/20 [History] SUMAtriptan succinate [Imitrex] 50 mg PO ASDIRECTED PRN 03/04/20 [History] Stem Cell Maxum 1 tab PO DAILY 03/04/20 [History] Losartan [Cozaar] 50 mg PO DAILY 30 Days #30 tab 03/07/20 [Rx] Past Medical History HEENT History: Reports: Impaired Vision Other HEENT History: wear glasses Cardiovascular History: Reports: High Cholesterol, Hypertension [place]ER[place] History: Reports: Endocrine/Metabolic History: Reports: Diabetes, Type II Other Endocrine/Metabolic History: checks blood sugars once a day - Infectious Disease History Other Infectious Disease History: unknown - Past Surgical History GI Surgical History: Reports: Colonoscopy, EGD Female Surgical History: Reports: Hysterectomy Social & Family History - Family History Family Medical History: No Pertinent Family History - Tobacco Use Tobacco Use Status *Q: Never Tobacco User - Caffeine Use Caffeine Use: Reports: Coffee - Recreational Drug Use Recreational Drug Use: No ED ROS GENERAL - Review of Systems Review Of Systems: See Below Constitutional: Reports: No Symptoms. Denies: Fever, Chills, Weakness, Fatigue HEENT: Reports: No Symptoms Respiratory: Reports: No Symptoms Cardiovascular: Reports: No Symptoms Endocrine: Reports: No Symptoms GI/Abdominal: Reports: Diarrhea, Nausea, Vomiting. Denies: Abdominal Pain : Reports: No Symptoms Musculoskeletal: Reports: No Symptoms Skin: Reports: No Symptoms Neurological: Reports: No Symptoms. Denies: Dizziness, Headache Psychiatric: Reports: No Symptoms Hematologic/Lymphatic: Reports: No Symptoms Immunologic: Reports: No Symptoms ED EXAM, GENERAL - Physical Exam Exam: See Below Exam Limited By: No Limitations General Appearance: Alert, WD/WN, No Apparent Distress Respiratory/Chest: No Respiratory Distress, Lungs Clear, Normal Breath Sounds, No Accessory Muscle Use, Chest Non-Tender Cardiovascular: Normal Peripheral Pulses, Regular Rate, Rhythm, No Edema, No Gallop, No JVD, No Murmur, No Rub GI/Abdominal: Normal Bowel Sounds, Soft, Non-Tender, No Organomegaly, No Distention, No Abnormal Bruit, No Mass Neurological: Alert, Oriented, CN II-XII Intact, Normal Cognition, Normal Gait, Normal Reflexes, No Motor/Sensory Deficits Psychiatric: Normal Affect, Normal Mood Skin Exam: Warm, Dry, Intact, Normal Color, No Rash Lymphatic: No Adenopathy #1 Interpretation EKG Date: 07/11/20 Time: 16:59 Rhythm: NSR Rate (Beats/Min): 76 [place]: Normal P-Wave: Present QRS: Normal ST-T: Normal QT: Normal Course - Vital Signs Last Recorded V/S: Last Vital Signs Temp 97.2 F 07/11/20 16:25 Pulse 85 07/11/20 19:22 Resp 20 07/11/20 16:25 BP 160/86 H 07/11/20 19:22 Pulse Ox 96 07/11/20 19:22 - Orders/Labs/Meds Orders: Active Orders 24 hr Category Date Time Status Peripheral IV Insertion Adult [OM.PC] Stat Oth 07/11/20 16:35 Ordered Labs: Laboratory Tests 07/11/20 07/11/20 07/11/20 Range/Units 16:50 16:50 16:50 WBC 10.31 H (3.98-10.04) K/mm3 RBC 4.17 (3.98-5.22) M/mm3 Hgb 12.0 (11.2-15.7) gm/dl Hct 37.7 (34.1-44.9) % MCV 90.4 (79.4-94.8) fl MCH 28.8 (25.6-32.2) pg MCHC 31.8 L (32.2-35.5) g/dl RDW Std Deviation 43.8 (36.4-46.3) fL Plt Count 304 (182-369) K/mm3 MPV 9.4 (9.4-12.3) fl Neut % (Auto) 86.6 H (34.0-71.1) % Lymph % (Auto) 9.8 L (19.3-51.7) % Stephenson % (Auto) 2.8 L (4.7-12.5) % Eos % (Auto) 0.1 L (0.7-5.8) Baso % (Auto) 0.4 (0.1-1.2) % Neut # (Auto) 8.93 H (1.56-6.13) K/mm3 Lymph # (Auto) 1.01 L (1.18-3.74) K/mm3 Stephenson # (Auto) 0.29 (0.24-0.36) K/mm3 Eos # (Auto) 0.01 L (0.04-0.36) K/mm3 Baso # (Auto) 0.04 (0.01-0.08) K/mm3 Manual Slide Review Normal smear Sodium 137 (136-145) mEq/L Potassium 4.1 (3.5-5.1) mEq/L Chloride 99 (98-107) mEq/L Carbon Dioxide 26 (21-32) mEq/L Anion Gap 16.1 H (5-15) BUN 27 H (7-18) mg/dL Creatinine 1.2 H (0.55-1.02) mg/dL Est Cr Clr Drug Dosing 35.00 mL/min Estimated GFR (MDRD) 43 (>60) mL/min BUN/Creatinine Ratio 22.5 H (14-18) Glucose 184 H (83-115) mg/dL Calcium 9.9 (8.5-10.1) mg/dL Magnesium (1.8-2.4) mg/dl Total Bilirubin 0.2 (0.2-1.0) mg/dL AST 16 (15-37) U/L ALT 26 (14-59) U/L Alkaline Phosphatase 45 L (46-116) U/L Troponin I < 0.017 (0.00-0.056) ng/mL C-Reactive Protein 0.3 (<1.0) mg/dL Total Protein 7.7 (6.4-8.2) g/dl Albumin 4.2 (3.4-5.0) g/dl Globulin 3.5 gm/dL Albumin/Globulin Ratio 1.2 (1-2) Lipase 71 L (73-393) U/L 12/18/20 Range/Units 16:50 WBC (3.98-10.04) K/mm3 RBC (3.98-5.22) M/mm3 Hgb (11.2-15.7) gm/dl Hct (34.1-44.9) % MCV (79.4-94.8) fl MCH (25.6-32.2) pg MCHC (32.2-35.5) g/dl RDW Std Deviation (36.4-46.3) fL Plt Count (182-369) K/mm3 MPV (9.4-12.3) fl Neut % (Auto) (34.0-71.1) % Lymph % (Auto) (19.3-51.7) % Stephenson % (Auto) (4.7-12.5) % Eos % (Auto) (0.7-5.8) Baso % (Auto) (0.1-1.2) % Neut # (Auto) (1.56-6.13) K/mm3 Lymph # (Auto) (1.18-3.74) K/mm3 Stephenson # (Auto) (0.24-0.36) K/mm3 Eos # (Auto) (0.04-0.36) K/mm3 Baso # (Auto) (0.01-0.08) K/mm3 Manual Slide Review Sodium (136-145) mEq/L Potassium (3.5-5.1) mEq/L Chloride (98-107) mEq/L Carbon Dioxide (21-32) mEq/L Anion Gap (5-15) BUN (7-18) mg/dL Creatinine (0.55-1.02) mg/dL Est Cr Clr Drug Dosing mL/min Estimated GFR (MDRD) (>60) mL/min BUN/Creatinine Ratio (14-18) Glucose (83-115) mg/dL Calcium (8.5-10.1) mg/dL Magnesium 1.8 (1.8-2.4) mg/dl Total Bilirubin (0.2-1.0) mg/dL AST (15-37) U/L ALT (14-59) U/L Alkaline Phosphatase (46-116) U/L Troponin I (0.00-0.056) ng/mL C-Reactive Protein (<1.0) mg/dL Total Protein (6.4-8.2) g/dl Albumin (3.4-5.0) g/dl Globulin gm/dL Albumin/Globulin Ratio (1-2) Lipase (73-393) U/L Meds: Medications Discontinued Medications Generic Name Dose Route Start Last Admin Trade Name Freq PRN Reason Stop Dose Admin Sodium Chloride 1,000 mls @ 150 mls/hr 07/11/20 16:36 07/11/20 16:57 Normal Saline IV 07/11/20 23:15 150 mls/hr NOW STA Administration Ondansetron HCl 4 mg 07/11/20 16:36 07/11/20 16:54 Zofran IVPUSH 07/11/20 16:37 4 mg ONETIME ONE Administration Sodium Chloride 10 ml 07/11/20 16:36 07/11/20 16:52 Saline Flush FLUSH 10 ml ASDIRECTED PRN Administration Keep Vein Open - Re-Assessments/Exams Free Text/Narrative Re-Assessment/Exam: Patient is an 80-year-old female presenting to the emergency department with nausea and vomiting since late this morning after taking a tramadol by mistake. No other symptoms including fever, chills, or abdominal pain. I have ordered CBC, CMP, CRP, lipase, magnesium, troponin, and EKG. I have ordered 1 L of NS as well as Zofran for nausea. 07/11/20 19:52 Hematology showed a WBC minimally elevated at 10.3, anion gap 16.1, BUN 27, creatinine 1.2. KG showed no acute abnormalities. Troponin was negative. Lipase was normal. Her potassium and magnesium are also normal. Patient has had no further vomiting since the Zofran was given. She has been able to drink water without difficulty. She is comfortable going home at this time. Discussed that her nausea and vomiting was likely related to the tramadol and that she should avoid taking this in the future. Discharge instructions as documented. Departure - Departure Time of Disposition: 19:52 Disposition: Home, Self-Care 01 Condition: Good Clinical Impression: Nausea and vomiting Qualifiers: Vomiting type: unspecified Vomiting Intractability: unspecified Qualified Code(s): R11.2 - Nausea with vomiting, unspecified - Discharge Information *PRESCRIPTION DRUG MONITORING PROGRAM REVIEWED*: No *COPY OF PRESCRIPTION DRUG MONITORING REPORT IN PATIENT [place]ANNA[place]: No Instructions: Nausea and Vomiting, Adult Referrals: Gia Klein MD [Primary Care Provider] - Forms: ED Department Discharge Additional Instructions: You were seen in the emergency department today for nausea and vomiting after accidentally taking a tramadol this morning. Work-up included blood work, and an EKG of your heart to rule out cardiac involvement. Your cardiac work-up was normal. The remainder of your blood work was also normal. While in the ER, you received a liter of IV fluids and Zofran for nausea. You had no further vomiting after that and were able to tolerate drinking liquids without difficulty. As we discussed, the nausea and vomiting was likely an adverse reaction to the tramadol. Recommend that you refrain from taking this in the future. If you should have recurrence of nausea and vomiting or develop any other symptoms of concern, please not hesitate to return to the emergency department for reevaluation. Sepsis Event Note (ED) - Evaluation Sepsis Screening Result: No Definite Risk - Focused Exam Vital Signs: Vital Signs Temp Pulse Resp BP Pulse Ox 07/11/20 19:22 85 160/86 H 96 07/11/20 16:25 97.2 F 88 20 174/89 H 94 L - My Orders Last 24 Hours: My Active Orders 07/11/20 16:35 Peripheral IV Insertion Adult [OM.PC] Stat - Assessment/Plan Last 24 Hours: My Active Orders 07/11/20 16:35 Peripheral IV Insertion Adult [OM.PC] Stat
[2020-07-11 19:23] VITALS: BP 160/86; PULSE 85
== END 2020-07-11 19:59 | disposition home or self-care (01) ==
LOC: JD.ED 16:08
DX: R11.2 Nausea with vomiting, unspecified (principal); R19.7 Diarrhea, unspecified; I10 Essential (primary) hypertension; E11.9 Type 2 diabetes mellitus without complications; D72.829 Elevated white blood cell count, unspecified; R79.89 Other specified abnormal findings of blood chemistry; Z88.1 Allergy status to other antibiotic agents; Z88.8 Allergy status to other drugs, medicaments and biological substances; Z88.5 Allergy status to narcotic agent; Z79.899 Other long term (current) drug therapy
CPT/HCPCS: 36415; 80053; 83690; 83735; 84484; 85025; 86140; 93005; 96374; 99284; J2405; J7030; 93010; 99283

== ENCOUNTER 2022-03-26 23:53 | Emergency (ER) | payer MEDICARE, BC ==
[2022-03-27 00:31] VITALS: BP 183/86; PULSE 74
[2022-03-27] MEDS ORDERED: Ondansetron 4 MG/2 ML SDV IVPUSH ONE (01:00)
[2022-03-27] MEDS ORDERED: Sodium Chloride 0.9% 1,000 ML IV ONE (01:00)
[2022-03-27] MEDS ORDERED: Loperamide 2 MG Cap PO STA (01:00)
[2022-03-27] MEDS ORDERED: Magnesium Sulfate/Water 2 GM in Premix Bag 1 BAG IV ONE (02:10)
[2022-03-27] MEDS ORDERED: Sodium Chloride 0.9% 500 ML IV ONE ×2 (02:37→03:38)
== END 2022-03-27 04:47 | disposition home or self-care (01) ==
LOC: JD.ED 23:53
DX: E86.9 Volume depletion, unspecified (principal); E83.42 Hypomagnesemia; E78.00 Pure hypercholesterolemia, unspecified; I10 Essential (primary) hypertension; E11.9 Type 2 diabetes mellitus without complications; Z88.5 Allergy status to narcotic agent; Z88.1 Allergy status to other antibiotic agents; Z88.8 Allergy status to other drugs, medicaments and biological substances; Z79.82 Long term (current) use of aspirin; Z79.899 Other long term (current) drug therapy; Z79.84 Long term (current) use of oral hypoglycemic drugs; Z20.822 Contact with and (suspected) exposure to COVID-19
CPT/HCPCS: 36415; 80053; 81001; 83735; 84484; 85007; 85027; 85379; 87086; 93005; 96361; 96365; 96366; 96375; 99284; A9270; J2405; J3475; J7030; U0002

== ENCOUNTER 2022-06-15 13:18 | Emergency (ER) | payer MEDICARE, BC ==
[2022-06-15] MEDS ORDERED: Ondansetron 4 MG Tab.DIS PO ONE (15:09)
[2022-06-15] MEDS ORDERED: Acetaminophen 325 MG Tab PO ONE (15:53)
[2022-06-15 17:04] LABS: CORONAVIRUS COVID-19 NAA NEGATIVE (NEGATIVE)
[2022-06-15] MEDS ORDERED: Magnesium Oxide 400 MG Tab PO ONE (18:44)
[2022-06-15 19:20] VITALS: BP 121/72; PULSE 77
== END 2022-06-15 19:20 | disposition home or self-care (01) ==
LOC: JD.ED 13:18
DX: J06.9 Acute upper respiratory infection, unspecified (principal); I10 Essential (primary) hypertension; E11.9 Type 2 diabetes mellitus without complications; Z88.8 Allergy status to other drugs, medicaments and biological substances; Z88.2 Allergy status to sulfonamides; Z88.5 Allergy status to narcotic agent; Z88.1 Allergy status to other antibiotic agents; Z79.82 Long term (current) use of aspirin; Z79.84 Long term (current) use of oral hypoglycemic drugs; Z79.899 Other long term (current) drug therapy; Z20.822 Contact with and (suspected) exposure to COVID-19
CPT/HCPCS: 0240U; 36415; 71045; 80053; 81001; 83735; 85025; 86140; 87086; 99283; A9270

== ENCOUNTER 2023-01-27 15:46 | Emergency (ER) | payer MEDICARE, BC ==
[2023-01-27] MEDS ORDERED: Ondansetron 4 MG/2 ML SDV IVPUSH ONE (16:08)
[2023-01-27] MEDS: Sodium Chloride 0.9% 10 ML Syringe FLUSH PRN ×2 (16:10→18:37)
[2023-01-27] MEDS ORDERED: Sodium Chloride 0.9% 1,000 ML IV ONE ×2 (16:13→18:29)
[2023-01-27 16:39] LABS: BASOPHILS ABSOLUTE AUTO 0.03 K/mm3 (0.01-0.08); BASOPHILS PERCENT AUTO 0.4 % (0.1-1.2); EOSINOPHILS ABSOLUTE AUTO 0.09 K/mm3 (0.04-0.36); EOSINOPHILS PERCENT AUTO 1.1 (0.7-5.8); HEMATOCRIT 36.3 % (34.1-44.9); HEMOGLOBIN 11.7 gm/dl (11.2-15.7); IMMATURE GRAN ABSOLUTE AUTO 0.01 K/mm3 (0.00-0.10); IMMATURE GRAN PERCENT AUTO 0.1 % (<=1.0); LYMPHOCYTES ABSOLUTE AUTO 1.54 K/mm3 (1.18-3.74); LYMPHOCYTES PERCENT AUTO 19.3 % (19.3-51.7); MEAN CORPUSCULAR HEMOGLOBIN 28.3 pg (25.6-32.2); MEAN CORPUSCULAR HGB CONC 32.2 g/dl (32.2-35.5); MEAN CORPUSCULAR VOLUME 87.9 fl (79.4-94.8); MEAN PLATELET VOLUME 8.4 fl (9.4-12.3); MONOCYTES ABSOLUTE AUTO 0.68 K/mm3 (0.24-0.36); MONOCYTES PERCENT AUTO 8.5 % (4.7-12.5); NEUTROPHILS ABSOLUTE AUTO 5.64 K/mm3 (1.56-6.13); NEUTROPHILS PERCENT AUTO 70.6 % (34.0-71.1); PLATELET COUNT,PLT 329 K/mm3 (182-369); RED BLOOD CELL COUNT 4.13 M/mm3 (3.98-5.22); WHITE BLOOD CELL COUNT,WBC 7.99 K/mm3 (3.98-10.04)
[2023-01-27 16:56] LABS: INR 0.99; PROTHROMBIN TIME 10.6 SECONDS (9.7-12.0)
[2023-01-27 16:58] LABS: PTT,PARTIAL THROMBOPLSTIN TIME 26.7 SECONDS (21.7-31.4)
[2023-01-27 17:10] LABS: ALBUMIN 3.6 g/dl (3.4-5.0); ANION GAP 7.8 (5-15); BILIRUBIN TOTAL 0.2 mg/dL (0.2-1.0); BUN/CREATININE RATIO 19.1 (14-18); CALCIUM 9.3 mg/dL (8.5-10.1); CREATININE 1.1 mg/dL (0.55-1.02); EST CRCL DRUG DOSING (CG) 36.91 mL/min; MAGNESIUM 1.4 mg/dL (1.8-2.4); POTASSIUM,K 3.8 mEq/L (3.5-5.1); PROTEIN TOTAL,TP 7.4 g/dl (6.4-8.2)
[2023-01-27] MEDS ORDERED: Magnesium Sulfate/Water 2 GM in Premix Bag 1 BAG IV ONE (17:38)
[2023-01-27 18:02] LABS: APPEARANCE,URINE SLT CLOUDY (Clear); BILIRUBIN,URINE NEGATIVE (Negative); COLOR,URINE YELLOW (Yellow); GLUCOSE,URINE NEGATIVE (Negative); KETONES,URINE NEGATIVE (Negative); LEUKOCYTE ESTERASE,URINE 2+ (Negative); NITRITE,URINE POSITIVE (Negative); OCCULT BLOOD,URINE NEGATIVE (Negative); PROTEIN,URINE NEGATIVE (Negative); UROBILINOGEN,URINE 0.2 (0.2-1.0)
[2023-01-27 18:12] LABS: BACTERIA,URINE MANY /hpf (FEW); MUCUS,URINE FEW /hpf (FEW); RBC,URINE 0-5 /hpf (0-5); SQUAMOUS EPITHELIAL CELLS,UR 0-5 /hpf (0-5)
[2023-01-27] MEDS ORDERED: Iopamidol 612 MG/ML 100 ML Bottle IVPUSH ONE (18:15)
[2023-01-27] MEDS ORDERED: Iopamidol 612 MG/ML 30 ML SDV IV ONE (18:16)
[2023-01-27] MEDS ORDERED: cefTRIAXone 2 GM in Sodium Chloride 0.9% 100 ML IV ONE (18:19)
[2023-01-27 20:34] LABS: CALCIUM 8.8 mg/dL (8.5-10.1); CREATININE 0.8 mg/dL (0.55-1.02); EST CRCL DRUG DOSING (CG) 50.75 mL/min; POTASSIUM,K 3.8 mEq/L (3.5-5.1)
[2023-01-27 20:48] LABS: ANION GAP 13.8 (5-15)
[2023-01-27 21:41] VITALS: BP 157/96; PULSE 80
== END 2023-01-27 21:38 | disposition home or self-care (01) ==
LOC: JD.ED 15:46
DX: N39.0 Urinary tract infection, site not specified (principal); E87.1 Hypo-osmolality and hyponatremia; E83.42 Hypomagnesemia; I10 Essential (primary) hypertension; E11.9 Type 2 diabetes mellitus without complications; Z88.8 Allergy status to other drugs, medicaments and biological substances; Z88.5 Allergy status to narcotic agent; Z88.2 Allergy status to sulfonamides; Z88.1 Allergy status to other antibiotic agents; Z79.84 Long term (current) use of oral hypoglycemic drugs; Z79.899 Other long term (current) drug therapy
CPT/HCPCS: 36415; 71045; 74177; 80048; 80053; 81001; 83735; 83880; 84484; 85025; 85610; 85730; 87086; 87088; 87186; 93005; 96361; 96365; 96366; 96368; 96375; 99284; J0696; J2405; J3475; J3490; J7030; Q9967

== ENCOUNTER → 2023-05-11 | Day surgery (SDC) | payer MEDICARE, BC ==
[~2023-05-11] MED LIST: Acetaminophen/HYDROcodone 325-5 MG Tab PO PRN; Dexamethasone 4 MG/ML 5 ML MDV ONE; Dexmedetomidine 200 MCG/2 ML SDV ONE; EPINEPHrine 1 MG/ML SDV ONE; Ketorolac 15 MG/ML SDV ONE; Lactated Ringers 1,000 ML ONE; Lidocaine 1% 5 ML VIAL ONE; Midazolam 1 MG/ML 2 ML SDV ONE; Morphine 8 MG, EPINEPHrine 0.3 MG, Cefuroxime 750 MG, Ketorolac 30 MG, Sodium Chloride ... PRN; Ondansetron 4 MG/2 ML SDV IVPUSH PRN; Ondansetron 4 MG/2 ML SDV ONE; Phenylephrine 1% 10 MG/ML SDV ONE; Propofol 200 MG/20 ML SDV ONE; Ropivacaine 0.5% 5 MG/ML 30 ML SDV ONE; Sodium Chloride 0.9% 10 ML Syringe FLUSH PRN; Sodium Chloride 0.9% 10 ML Syringe FLUSH SCH; Tranexamic Acid 1,000 MG/10 ML Vial ONE; Vancomycin 1 GM SDV ONE; ceFAZolin 2 GM Vial ONE; ePHEDrine 50 MG/ML SDV ONE; fentaNYL 100 MCG/2 ML SDV IVPUSH PRN; fentaNYL 100 MCG/2 ML SDV ONE
[2023-05-11] MEDS: Lactated Ringers 1,000 ML IV SCH ×2 (09:45→13:48)
[2023-05-11 15:45] VITALS: BP 124/70; PULSE 78
== END | disposition home or self-care (01) ==
LOC: JD.SDS 09:08
PROVIDERS: ATTEND Orthopaedic Surgery
DX: M17.12 Unilateral primary osteoarthritis, left knee (principal); F41.9 Anxiety disorder, unspecified; E11.40 Type 2 diabetes mellitus with diabetic neuropathy, unspecified; K21.9 Gastro-esophageal reflux disease without esophagitis; E78.00 Pure hypercholesterolemia, unspecified; I10 Essential (primary) hypertension; M81.0 Age-related osteoporosis without current pathological fracture; Z88.5 Allergy status to narcotic agent; Z88.1 Allergy status to other antibiotic agents; Z88.8 Allergy status to other drugs, medicaments and biological substances; Z79.82 Long term (current) use of aspirin; Z79.85 Long-term (current) use of injectable non-insulin antidiabetic drugs; Z79.4 Long term (current) use of insulin; Z79.899 Other long term (current) drug therapy; Z87.891 Personal history of nicotine dependence
CPT/HCPCS: 0055T; 27447; 64447; 73560; 82947; 97110; 97116; 97161; C1713; C1776; J0171; J0690; J0697; J1885; J2250; J2270; J2371; J2405; J2704; J2795; J3010; J3370; J7030; J7120; 01402; 99100; J1100; J3490

== ENCOUNTER 2023-05-29 08:49 | Inpatient (IN) | payer MEDICARE, BC ==
[2023-05-29] MEDS ORDERED: Lactated Ringers 1,000 ML IV SCH (09:15)
[2023-05-29] MEDS ORDERED: Metoclopramide 10 MG/2 ML SDV IVPUSH ONE ×2 (09:29→12:24)
[2023-05-29 09:36] LABS: BASOPHILS PERCENT AUTO 0.4 % (0.0-1.0); EOSINOPHILS ABSOLUTE AUTO 0.1 K/mm3 (0.0-0.4); EOSINOPHILS PERCENT AUTO 0.9 % (0.0-6.0); HEMATOCRIT 30.1 % (37.0-47.0); HEMOGLOBIN 10.1 gm/dl (12.0-16.0); IMMATURE GRAN ABSOLUTE AUTO 0.04 K/mm3 (0.00-0.05); IMMATURE GRAN PERCENT AUTO 0.4 % (0.0-0.4); LYMPHOCYTES ABSOLUTE AUTO 1.1 K/mm3 (1.0-4.8); LYMPHOCYTES PERCENT AUTO 11.7 % (24.0-44.0); MEAN CORPUSCULAR HEMOGLOBIN 28.7 pg (28.0-32.0); MEAN CORPUSCULAR HGB CONC 33.6 g/dl (32.0-36.0); MEAN CORPUSCULAR VOLUME 85.5 fl (83.0-99.0); MEAN PLATELET VOLUME 7.8 fl (9.4-12.3); MONOCYTES ABSOLUTE AUTO 0.6 K/mm3 (0.0-0.8); MONOCYTES PERCENT AUTO 6.3 % (0.0-8.0); NEUTROPHILS ABSOLUTE AUTO 7.4 K/mm3 (1.8-7.7); NEUTROPHILS PERCENT AUTO 80.3 % (41.0-71.0); RED BLOOD CELL COUNT 3.52 M/mm3 (4.10-5.30); WHITE BLOOD CELL COUNT,WBC 9.25 K/mm3 (3.9-11.3)
[2023-05-29 09:41] LABS: PLATELET COUNT,PLT 404 K/mm3 (150-400)
[2023-05-29 09:56] LABS: HEMOGLOBIN A1C 7.1 %
[2023-05-29 10:05] LABS: A/G RATIO 0.7 (1-2); ALBUMIN 3.3 g/dl (3.4-5.0); ANION GAP 14.8 (5-15); BILIRUBIN TOTAL 0.3 mg/dL (0.2-1.0); BUN/CREATININE RATIO 14.5 (14-18); C-REACTIVE PROTEIN 4.7 mg/dL (<1.0); CALCIUM 9.4 mg/dL (8.5-10.1); CREATININE 1.1 mg/dL (0.55-1.02); EST CRCL DRUG DOSING (CG) 36.28 mL/min; MAGNESIUM 1.4 mg/dL (1.8-2.4); POTASSIUM,K 3.8 mEq/L (3.5-5.1); PROTEIN TOTAL,TP 7.9 g/dl (6.4-8.2)
[2023-05-29 10:26] LABS: APPEARANCE,URINE CLEAR (Clear); BILIRUBIN,URINE NEGATIVE (Negative); COLOR,URINE YELLOW (Yellow); GLUCOSE,URINE NEGATIVE (Negative); KETONES,URINE NEGATIVE (Negative); LEUKOCYTE ESTERASE,URINE 1+ (Negative); NITRITE,URINE NEGATIVE (Negative); OCCULT BLOOD,URINE NEGATIVE (Negative); PROTEIN,URINE NEGATIVE (Negative); UROBILINOGEN,URINE 0.2 (0.2-1.0)
[2023-05-29 10:42] LABS: BACTERIA,URINE FEW /hpf (FEW); EPITHELIAL CELLS,URINE 0-5 /hpf (0-5); MUCUS,URINE NOT SEEN /hpf (FEW); RBC,URINE 0-5 /hpf (0-5)
[2023-05-29] MEDS ORDERED: Magnesium Sulfate/Water 4 GM in Premix Bag 1 BAG IV ONE (11:33)
[2023-05-29] MEDS ORDERED: Acetaminophen/HYDROcodone 325-5 MG Tab PO PRN (13:07)
[2023-05-29] MEDS ORDERED: Ondansetron 4 MG Tab.DIS PO PRN ×2 (13:08→13:33)
[2023-05-29] MEDS: Lactated Ringers 1,000 ML IV SCH (15:04)
[2023-05-29] MEDS: cefTRIAXone 1 GM in Sodium Chloride 0.9% 100 ML IV SCH (15:04)
[2023-05-29] MEDS ORDERED: Vancomycin 125 MG Cap PO SCH (17:00)
[2023-05-29] MEDS: Insulin Glargine,Human Rec. Analog 100 Units/ML 3 ML Pen SUBCUT SCH (22:15)
[2023-05-29] MEDS: traZODone 50 MG Tab PO PRN (22:27)
[2023-05-29] MEDS: Sodium Chloride 1 GM Tab PO SCH (22:27)
[2023-05-30] MEDS: Acetaminophen 325 MG Tab PO PRN (00:25)
[2023-05-30] MEDS: Lactated Ringers 1,000 ML IV SCH ×2 (02:49→13:53)
[2023-05-30 05:46] LABS: BASOPHILS PERCENT AUTO 0.5 % (0.0-1.0); EOSINOPHILS ABSOLUTE AUTO 0.1 K/mm3 (0.0-0.4); EOSINOPHILS PERCENT AUTO 1.6 % (0.0-6.0); HEMATOCRIT 29.6 % (37.0-47.0); HEMOGLOBIN 9.9 gm/dl (12.0-16.0); IMMATURE GRAN ABSOLUTE AUTO 0.04 K/mm3 (0.00-0.05); IMMATURE GRAN PERCENT AUTO 0.5 % (0.0-0.4); LYMPHOCYTES ABSOLUTE AUTO 1.2 K/mm3 (1.0-4.8); LYMPHOCYTES PERCENT AUTO 15.4 % (24.0-44.0); MEAN CORPUSCULAR HEMOGLOBIN 28.4 pg (28.0-32.0); MEAN CORPUSCULAR HGB CONC 33.4 g/dl (32.0-36.0); MEAN CORPUSCULAR VOLUME 85.1 fl (83.0-99.0); MONOCYTES ABSOLUTE AUTO 0.6 K/mm3 (0.0-0.8); MONOCYTES PERCENT AUTO 7.3 % (0.0-8.0); NEUTROPHILS ABSOLUTE AUTO 5.9 K/mm3 (1.8-7.7); NEUTROPHILS PERCENT AUTO 74.7 % (41.0-71.0); PLATELET COUNT,PLT 380 K/mm3 (150-400); RED BLOOD CELL COUNT 3.48 M/mm3 (4.10-5.30); WHITE BLOOD CELL COUNT,WBC 7.92 K/mm3 (3.9-11.3)
[2023-05-30 06:04] LABS: ANION GAP 13.8 (5-15); CALCIUM 9.2 mg/dL (8.5-10.1); EST CRCL DRUG DOSING (CG) 39.9 mL/min; POTASSIUM,K 3.8 mEq/L (3.5-5.1)
[2023-05-30] MEDS: Aspirin 325 MG Tab.EC PO SCH (09:21)
[2023-05-30] MEDS: Hydrochlorothiazide 25 MG Tab PO SCH (09:21)
[2023-05-30] MEDS: Losartan 100 MG Tab PO SCH (09:21)
[2023-05-30] MEDS: Vancomycin 125 MG Cap PO SCH ×4 (09:21→21:19)
[2023-05-30] MEDS: Sodium Chloride 1 GM Tab PO SCH ×2 (09:21→21:20)
[2023-05-30] MEDS: Enoxaparin 40 MG/0.4 ML Syringe SUBCUT SCH (09:22)
[2023-05-30] MEDS: cefTRIAXone 1 GM in Sodium Chloride 0.9% 100 ML IV SCH (13:47)
[2023-05-30] MEDS: traZODone 50 MG Tab PO PRN (21:19)
[2023-05-30] MEDS: Insulin Glargine,Human Rec. Analog 100 Units/ML 3 ML Pen SUBCUT SCH (21:21)
[2023-05-31] MEDS: Lactated Ringers 1,000 ML IV SCH (02:05)
[2023-05-31] MEDS: Acetaminophen 325 MG Tab PO PRN (09:03)
[2023-05-31] MEDS: Enoxaparin 40 MG/0.4 ML Syringe SUBCUT SCH (09:03)
[2023-05-31] MEDS: Hydrochlorothiazide 25 MG Tab PO SCH (09:05)
[2023-05-31] MEDS: Sodium Chloride 1 GM Tab PO SCH (09:05)
[2023-05-31] MEDS: Losartan 100 MG Tab PO SCH (09:05)
[2023-05-31] MEDS: Aspirin 325 MG Tab.EC PO SCH (09:05)
[2023-05-31] MEDS: Vancomycin 125 MG Cap PO SCH (09:06)
[2023-05-31 11:55] VITALS: BP 140/62; PULSE 80
== END 2023-05-31 15:43 | DRG 394 ==
LOC: JD.ED 08:49 → JD.MS 11:46
PROVIDERS: ADMIT Hospitalist; ATTEND Hospitalist
DX: K52.1 Toxic gastroenteritis and colitis (principal); E87.1 Hypo-osmolality and hyponatremia; R19.7 Diarrhea, unspecified; R11.0 Nausea; N39.0 Urinary tract infection, site not specified; T36.8X5A Adverse effect of other systemic antibiotics, initial encounter; E78.00 Pure hypercholesterolemia, unspecified; I10 Essential (primary) hypertension; M19.90 Unspecified osteoarthritis, unspecified site; G43.909 Migraine, unspecified, not intractable, without status migrainosus; E11.9 Type 2 diabetes mellitus without complications; E83.42 Hypomagnesemia; D72.828 Other elevated white blood cell count; D64.89 Other specified anemias; E86.0 Dehydration; Z96.652 Presence of left artificial knee joint; Z88.1 Allergy status to other antibiotic agents; Z88.2 Allergy status to sulfonamides; Z88.8 Allergy status to other drugs, medicaments and biological substances; Z79.899 Other long term (current) drug therapy; Z79.4 Long term (current) use of insulin; Z79.82 Long term (current) use of aspirin; Z98.49 Cataract extraction status, unspecified eye; Z98.890 Other specified postprocedural states; Z90.710 Acquired absence of both cervix and uterus
CPT/HCPCS: 36415; 80053; 81001; 83036; 83605; 83735; 83880; 83930; 85025; 86140; 87040 ×2; 87086; J2765; J7120; 80048; 82947; 87045; 87046; 87324; 87493; 87641; 87899; 96361; 96374; 97110-GP; 97161-GP; 99284; 99285-25; A9270-GY; J0696; J1650; J1815-GY; J3475; J3490

== ENCOUNTER 2023-12-20 12:42 | Emergency (ER) | payer MEDICARE, BC, OTHER ==
[2023-12-20] MEDS: Diclofenac Sodium 1% Gel 100 GM Tube TOP ONE (14:14)
[2023-12-20 15:22] VITALS: BP 183/99; PULSE 89
== END 2023-12-20 14:55 | disposition home or self-care (01) ==
LOC: JD.ED 12:42
DX: M25.531 Pain in right wrist (principal); I10 Essential (primary) hypertension; E78.00 Pure hypercholesterolemia, unspecified; E11.9 Type 2 diabetes mellitus without complications; Z90.710 Acquired absence of both cervix and uterus; Z88.1 Allergy status to other antibiotic agents; Z88.6 Allergy status to analgesic agent; Z88.5 Allergy status to narcotic agent; Z88.8 Allergy status to other drugs, medicaments and biological substances; Z88.2 Allergy status to sulfonamides; Z79.4 Long term (current) use of insulin; Z79.899 Other long term (current) drug therapy; V49.49XA Driver injured in collision with other motor vehicles in traffic accident, initial encounter; Y93.89 Activity, other specified
CPT/HCPCS: 36415; 70450; 71046; 72125; 73100; 84132; 93005; 99285; A9270

== ENCOUNTER 2024-05-18 17:04 | Emergency (ER) | payer MEDICARE, BC ==
[2024-05-18] MEDS: Acetaminophen 325 MG Tab PO ONE (19:41)
[2024-05-19 02:10] VITALS: BP 138/76; PULSE 75
== END 2024-05-18 22:06 | disposition home or self-care (01) ==
LOC: JD.ED 17:04
DX: M25.561 Pain in right knee (principal); I10 Essential (primary) hypertension; E11.9 Type 2 diabetes mellitus without complications; Z79.4 Long term (current) use of insulin; Z79.899 Other long term (current) drug therapy; Z88.1 Allergy status to other antibiotic agents; Z88.5 Allergy status to narcotic agent; Z88.8 Allergy status to other drugs, medicaments and biological substances; Z88.2 Allergy status to sulfonamides
CPT/HCPCS: 73562; 93971; 99284; A9270; 99283

== ENCOUNTER 2024-06-02 13:20 | Emergency (ER) | payer MEDICARE, BC ==
[2024-06-02 14:47] LABS: BASOPHILS ABSOLUTE AUTO 0.1 K/mm3 (0.0-0.2); BASOPHILS PERCENT AUTO 0.4 % (0.0-1.0); EOSINOPHILS PERCENT AUTO 0.2 % (0.0-6.0); HEMATOCRIT 41.3 % (37.0-47.0); HEMOGLOBIN 13.4 gm/dl (12.0-16.0); IMMATURE GRAN ABSOLUTE AUTO 0.07 K/mm3 (0.00-0.05); IMMATURE GRAN PERCENT AUTO 0.6 % (0.0-0.4); LYMPHOCYTES ABSOLUTE AUTO 1.2 K/mm3 (1.0-4.8); LYMPHOCYTES PERCENT AUTO 9.9 % (24.0-44.0); MEAN CORPUSCULAR HEMOGLOBIN 28.5 pg (28.0-32.0); MEAN CORPUSCULAR HGB CONC 32.4 g/dl (32.0-36.0); MEAN CORPUSCULAR VOLUME 87.7 fl (83.0-99.0); MEAN PLATELET VOLUME 9.2 fl (9.4-12.3); MONOCYTES ABSOLUTE AUTO 0.6 K/mm3 (0.0-0.8); MONOCYTES PERCENT AUTO 5.1 % (0.0-8.0); NEUTROPHILS ABSOLUTE AUTO 10.6 K/mm3 (1.8-7.7); NEUTROPHILS PERCENT AUTO 83.8 % (41.0-71.0); PLATELET COUNT,PLT 329 K/mm3 (150-400); RED BLOOD CELL COUNT 4.71 M/mm3 (4.10-5.30); WHITE BLOOD CELL COUNT,WBC 12.58 K/mm3 (3.9-11.3)
[2024-06-02 15:13] LABS: A/G RATIO 0.9 (1-2); ALANINE AMINOTRANSFERASE,ALT 30 U/L (14-59); ALBUMIN 3.8 g/dl (3.4-5.0); ALKALINE PHOSPHATASE 107 U/L (46-116); ANION GAP 12.4 (5-15); ASPARTATE AMNIOTRANSFERASE,AST 15 U/L (15-37); BILIRUBIN TOTAL 0.4 mg/dL (0.2-1.0); BLOOD UREA NITROGEN,BUN 26 mg/dL (7-18); BUN/CREATININE RATIO 21.7 (14-18); CALCIUM 9.3 mg/dL (8.5-10.1); CARBON DIOXIDE,CO2 28 mEq/L (21-32); CHLORIDE,CL 95 mEq/L (98-107); CREATININE 1.2 mg/dL (0.55-1.02); EST CRCL DRUG DOSING (CG) 33.94 mL/min; ESTIMATED GFR 45 mL/min (>60); GLUCOSE RANDOM 242 mg/dL (70-99); MAGNESIUM 1.6 mg/dL (1.8-2.4); POTASSIUM,K 4.4 mEq/L (3.5-5.1); SODIUM,NA 131 mEq/L (136-145)
[2024-06-02 15:17] LABS: TROPONIN I HIGH SENSITIVITY < 4 pg/mL (<=51)
[2024-06-02 17:36] VITALS: BP 157/77; PULSE 72
== END 2024-06-02 17:49 | disposition home or self-care (01) ==
LOC: JD.ED 13:20
DX: R42 Dizziness and giddiness (principal); I10 Essential (primary) hypertension; E11.9 Type 2 diabetes mellitus without complications; Z79.4 Long term (current) use of insulin; Z79.899 Other long term (current) drug therapy; Z88.1 Allergy status to other antibiotic agents; Z88.8 Allergy status to other drugs, medicaments and biological substances; Z88.5 Allergy status to narcotic agent; Z88.9 Allergy status to unspecified drugs, medicaments and biological substances; Z88.2 Allergy status to sulfonamides
CPT/HCPCS: 36415; 71046; 71046-26; 80053; 83735; 83880; 84484; 85025; 93005; 99285

== ENCOUNTER 2024-08-29 09:02 | Emergency (ER) | payer MEDICARE, BC ==
[2024-08-29 09:54] VITALS: BP 197/95; PULSE 78
[2024-08-29] MEDS ORDERED: Sodium Chloride 0.9% 10 ML Syringe FLUSH PRN (09:55)
[2024-08-29 10:48] LABS: BASOPHILS ABSOLUTE AUTO 0.1 K/mm3 (0.0-0.2); BASOPHILS PERCENT AUTO 0.6 % (0.0-1.0); EOSINOPHILS PERCENT AUTO 0.3 % (0.0-6.0); HEMATOCRIT 39.4 % (37.0-47.0); HEMOGLOBIN 12.6 gm/dl (12.0-16.0); IMMATURE GRAN ABSOLUTE AUTO 0.08 K/mm3 (0.00-0.05); IMMATURE GRAN PERCENT AUTO 0.7 % (0.0-0.4); LYMPHOCYTES ABSOLUTE AUTO 1.2 K/mm3 (1.0-4.8); LYMPHOCYTES PERCENT AUTO 10.9 % (24.0-44.0); MEAN CORPUSCULAR HEMOGLOBIN 29.3 pg (28.0-32.0); MEAN CORPUSCULAR VOLUME 91.6 fl (83.0-99.0); MONOCYTES ABSOLUTE AUTO 0.5 K/mm3 (0.0-0.8); MONOCYTES PERCENT AUTO 4.7 % (0.0-8.0); NEUTROPHILS ABSOLUTE AUTO 9.4 K/mm3 (1.8-7.7); NEUTROPHILS PERCENT AUTO 82.8 % (41.0-71.0); PLATELET COUNT,PLT 286 K/mm3 (150-400); WHITE BLOOD CELL COUNT,WBC 11.39 K/mm3 (3.9-11.3)
[2024-08-29 11:18] LABS: A/G RATIO 0.9 (1-2); ALBUMIN 3.8 g/dl (3.4-5.0); ANION GAP 9.2 (5-15); BILIRUBIN TOTAL 0.4 mg/dL (0.2-1.0); BUN/CREATININE RATIO 17.3 (14-18); CALCIUM 9.9 mg/dL (8.5-10.1); CREATININE 1.1 mg/dL (0.55-1.02); EST CRCL DRUG DOSING (CG) 35.64 mL/min; POTASSIUM,K 4.2 mEq/L (3.5-5.1); PROTEIN TOTAL,TP 7.9 g/dl (6.4-8.2)
[2024-08-29] MEDS: Sodium Chloride 0.9% 100 ML IV SCH (12:49)
[2024-08-29] MEDS: Sodium Chloride 0.9% 10 ML Syringe FLUSH PRN (12:49)
[2024-08-29] MEDS: Iopamidol 755 Mg/ML 100 ML Bottle IVPUSH ONE (12:50)
[2024-08-29 13:49] LABS: APPEARANCE,URINE CLOUDY (Clear); BILIRUBIN,URINE NEGATIVE (Negative); COLOR,URINE YELLOW (Yellow); GLUCOSE,URINE 1+ (Negative); KETONES,URINE NEGATIVE (Negative); LEUKOCYTE ESTERASE,URINE 2+ (Negative); NITRITE,URINE POSITIVE (Negative); OCCULT BLOOD,URINE TRACE-LYSED (Negative); PROTEIN,URINE NEGATIVE (Negative); UROBILINOGEN,URINE 0.2 (0.2-1.0)
[2024-08-29 14:30] LABS: BACTERIA,URINE MODERATE /hpf (FEW); MUCUS,URINE FEW /hpf (FEW); RBC,URINE 0-5 /hpf (0-5); SQUAMOUS EPITHELIAL CELLS,UR 0-5 /hpf (0-5); WBC,URINE 50-75 /hpf (0-5)
[2024-08-29] MEDS: hydrALAZINE 20 MG/ML SDV IVPUSH ONE (17:04)
== END 2024-08-29 15:23 | disposition home or self-care (01) ==
LOC: JD.ED 09:02
DX: I11.9 Hypertensive heart disease without heart failure (principal); R93.0 Abnormal findings on diagnostic imaging of skull and head, not elsewhere classified; E11.9 Type 2 diabetes mellitus without complications; Z90.710 Acquired absence of both cervix and uterus; Z88.1 Allergy status to other antibiotic agents; Z88.5 Allergy status to narcotic agent; Z88.8 Allergy status to other drugs, medicaments and biological substances; Z79.4 Long term (current) use of insulin; Z79.899 Other long term (current) drug therapy
CPT/HCPCS: 36415; 70450; 70496; 71046; 80053; 81001; 82947; 84484; 85025; 87086; 87088; 87186; 93005; 99284; Q9967; 93010

== ENCOUNTER 2025-02-18 07:00 | Day surgery (SDC) | payer MEDICARE, BC ==
[2025-02-18] MEDS: Lactated Ringers 1,000 ML IV SCH (06:36)
[~2025-02-18 07:00] MED LIST changes: -Acetaminophen/HYDROcodone 325-5 MG Tab PO PRN; -Dexamethasone 4 MG/ML 5 ML MDV ONE; -Dexmedetomidine 200 MCG/2 ML SDV ONE; -EPINEPHrine 1 MG/ML SDV ONE; -Ketorolac 15 MG/ML SDV ONE; -Lactated Ringers 1,000 ML ONE; -Lidocaine 1% 5 ML VIAL ONE; -Morphine 8 MG, EPINEPHrine 0.3 MG, Cefuroxime 750 MG, Ketorolac 30 MG, Sodium Chloride ... PRN; -Ondansetron 4 MG/2 ML SDV IVPUSH PRN; -Ondansetron 4 MG/2 ML SDV ONE; -Phenylephrine 1% 10 MG/ML SDV ONE; -Propofol 200 MG/20 ML SDV ONE; -Sodium Chloride 0.9% 10 ML Syringe FLUSH SCH; -Tranexamic Acid 1,000 MG/10 ML Vial ONE; -Vancomycin 1 GM SDV ONE; -ceFAZolin 2 GM Vial ONE; -ePHEDrine 50 MG/ML SDV ONE; +propofoL 500 MG/50 ML 50 ML ONE
[2025-02-18] MEDS ORDERED: Lactated Ringers 1,000 ML ONE (08:10)
[2025-02-18] MEDS ORDERED: ePHEDrine 50 MG/ML SDV ONE (08:18)
[2025-02-18] MEDS: Morphine 8 MG, EPINEPHrine 0.3 MG, Cefuroxime 750 MG, Ketorolac 30 MG, Sodium Chloride ... PRN (09:18)
[2025-02-18] MEDS: Ondansetron 4 MG/2 ML SDV IVPUSH PRN (10:37)
[2025-02-18] MEDS: Acetaminophen/HYDROcodone 325-5 MG Tab PO PRN ×2 (11:44→17:56)
[2025-02-18] MEDS: droPERidol 2.5 MG/ML SDV IV STA (13:06)
[2025-02-18] MEDS: Scopalamine 1mg/3day Transdermal Patch TRDERM PRN (13:06)
[2025-02-18] MEDS: Sodium Chloride 0.9% 10 ML Syringe FLUSH SCH (17:26)
[2025-02-18] MEDS ORDERED: 50% Dextrose in Water 50 ML Syringe IVPUSH PRN (17:35)
[2025-02-18] MEDS ORDERED: Ondansetron 4 MG Tab.DIS PO PRN (17:57)
[2025-02-18] MEDS: Insulin Glargine,Human Rec. Analog 100 Units/ML 3 ML Pen SUBCUT SCH (21:20)
[2025-02-19] MEDS: Acetaminophen/HYDROcodone 325-5 MG Tab PO PRN (06:34)
[2025-02-19 13:12] VITALS: BP 145/66; PULSE 82
== END 2025-02-19 13:08 | disposition home or self-care (01) ==
LOC: JD.SDS 07:00 → JD.MS 17:15 → JD.SDS 02-19 13:08
PROVIDERS: ATTEND Orthopaedic Surgery
DX: M17.11 Unilateral primary osteoarthritis, right knee (principal); I12.9 Hypertensive chronic kidney disease with stage 1 through stage 4 chronic kidney disease, or unspecified chronic kidney disease; N18.30 Chronic kidney disease, stage 3 unspecified; E11.22 Type 2 diabetes mellitus with diabetic chronic kidney disease; E78.00 Pure hypercholesterolemia, unspecified; Z88.8 Allergy status to other drugs, medicaments and biological substances; Z88.1 Allergy status to other antibiotic agents; Z79.82 Long term (current) use of aspirin; Z79.899 Other long term (current) drug therapy
CPT/HCPCS: 0055T; 27447; 64447; 73560; 82947; 97110; 97116; 97161; 97530; A9270; C1713; C1776; J0171; J0690; J0697; J1790; J1815; J1885; J2250; J2272; J2405; J2704; J2795; J3010; J3373; J7120; 01402; 99100; J3490